=== PATIENT | female | born 1955 | race Caucasian/White ===

== ENCOUNTER 2018-02-07 10:28 | Emergency (ER) | payer OTHER, BC, SELFPAY ==
[2018-02-07 10:29] VITALS: BP 166/143; PULSE 128; RESP 20; TEMP 36.2; O2SAT 99; BMI 30.2
[2018-02-07 11:34] VITALS: BP 143/64; PULSE 82; RESP 18; O2SAT 99
[2018-02-07] MEDS: HYDROmorphone 1 MG/ML Syringe IM (12:04)
[2018-02-07 14:10] VITALS: BP 131/70; RESP 18
--- NOTE | 2018-02-07 14:12 | ED.VISSUMM ---
- ER Visit Summary Date of Service: 02/07/18 Chief Complaint: Back pain History of Present Illness: The patient is a 62 F with hypertension diverticulitis. Patient states she has had back pain since January 26. Primarily right lower back. It does radiate down to her right leg. She denies any trauma. Denies any fall or fever. Denies any abdominal pain. Worse with movement. She has been seen and worked up for this by a chiropractor. She has had a recent CT of the abdomen which showed enlarged lymph nodes. An MRI of her spine showed multiple levels of degenerative disc disease at L3, L4, L5 and S1. She has an appointment to see a transit specialist at the [facility] on Wednesday. She denies any bowel or bladder incontinence. She does have radiation to her right leg. She denies any prior back surgery. Physical Examination: Older female complaining of pain vital signs are stable afebrile. Does not look septic or toxic. H EENT exam unremarkable neck nontender lungs clear to auscultation bilaterally. Heart tachycardic no murmur. Abdomen soft nontender also no organomegaly or masses. Nondistended normal bowel sounds. Moving all 4 extremities. Neurovascular intact. No cauda equina. No saddle anesthesia. 5 5 motor strength with dorsi plantar flexion. Normal medial thigh sensation. She does have a straight leg raise between 15 and 30? on the right. Negative on the left. Back exam both the cervical and thoracic spine are nontender her lower lumbar and right paralumbar soft tissues are tender to palpation. There is no redness or warmth. No signs of trauma. Neurologically she is awake and alert. Moving all 4 extremities. She is able to ambulate down the hallway. Again there is no cauda equina or saddle anesthesia. Test Results: None Emergency Department Course and Treatment: Treated with IM Dilaudid. We reviewed the results of her recent MRI and CT. The CAT scan showed lymphadenopathy. This was of her abdomen and pelvis. The lumbar spine showed multiple levels of degenerative disc disease with some spinal stenosis. Treatment Plan: Patient is doing better on repeat exam at 1410. Her are comfortable being discharged home. She will be written for some additional hydrocodone. Appointment to see the transit specialist at [facility] on Wednesday. They know to return if any signs of cauda equina such as bowel or bladder incontinence, retention, increasing pain, fever or leg weakness. Disposition: Discharged Impression: Acute low back pain secondary to multiple level degenerative disc disease with radiculopathy. This note was generated with [employer] dictation software. It may contain incorrect words, spelling, and punctuation that were not noted in review of the chart prior to signing ED Disposition - Plan for ED Patient: Chief Complaint: Back Referrals: Ashok Hernandez [Primary Care Provider] -
--- NOTE | 2018-02-07 14:17 | ED.DCSUM_ITS ---
- ER Visit Summary Date of Service: 02/07/18 Chief Complaint: Back pain History of Present Illness: The patient is a 62 F with hypertension diverticulitis. Patient states she has had back pain since January 26. Primarily right lower back. It does radiate down to her right leg. She denies any trauma. Denies any fall or fever. Denies any abdominal pain. Worse with movement. She has been seen and worked up for this by a chiropractor. She has had a recent CT of the abdomen which showed enlarged lymph nodes. An MRI of her spine showed multiple levels of degenerative disc disease at L3, L4, L5 and S1. She has an appointment to see a training specialist at the [facility] on Wednesday. She denies any bowel or bladder incontinence. She does have radiation to her right leg. She denies any prior back surgery. Physical Examination: Older female complaining of pain vital signs are stable afebrile. Does not look septic or toxic. H EENT exam unremarkable neck nontender lungs clear to auscultation bilaterally. Heart tachycardic no murmur. Abdomen soft nontender also no organomegaly or masses. Nondistended normal bowel sounds. Moving all 4 extremities. Neurovascular intact. No cauda equina. No saddle anesthesia. 5 5 motor strength with dorsi plantar flexion. Normal medial thigh sensation. She does have a straight leg raise between 15 and 30? on the right. Negative on the left. Back exam both the cervical and thoracic spine are nontender her lower lumbar and right paralumbar soft tissues are tender to palpation. There is no redness or warmth. No signs of trauma. Neurologically she is awake and alert. Moving all 4 extremities. She is able to ambulate down the hallway. Again there is no cauda equina or saddle anesthesia. Test Results: None Emergency Department Course and Treatment: Treated with IM Dilaudid. We reviewed the results of her recent MRI and CT. The CAT scan showed lymphadenopathy. This was of her abdomen and pelvis. The lumbar spine showed multiple levels of degenerative disc disease with some spinal stenosis. Treatment Plan: Patient is doing better on repeat exam at 1410. Her are comfortable being discharged home. She will be written for some additional hydrocodone. Appointment to see the training specialist at [facility] on Wednesday. They know to return if any signs of cauda equina such as bowel or bladder incontinence, retention, increasing pain, fever or leg weakness. Disposition: Discharged Impression: Acute low back pain secondary to multiple level degenerative disc disease with radiculopathy. This note was generated with [employer] dictation software. It may contain incorrect words, spelling, and punctuation that were not noted in review of the chart prior to signing ED Disposition - Plan for ED Patient: Chief Complaint: Back Referrals: Ashok Hernandez [Primary Care Provider] -
--- NOTE | 2018-02-07 14:19 | DCINST.ED_ITS ---
ED Disposition - Plan for ED Patient: Disposition: Home or Assisted Living Chief Complaint: Back Instructions: ED Sciatica Prescriptions: Hydrocodone/Acetaminophen [Hydrocodone-Acetamin 7.5-300] 1 ea PO Q6H PRN PRN # 20 tab PRN Reason: Pain Additional Instructions: Follow-up with your rn document improvement specialist to [facility] on Wednesday. Pain medications as prescribed the hydrocodone. Also limited Motrin 400 mg in the morning and after dinner.
[2018-02-07] MEDS: HYDROmorphone 1 MG/ML Syringe SC (14:27)
[2018-02-07 14:48] VITALS: BP 126/73; PULSE 82; RESP 18
== END 2018-02-07 14:49 | disposition home or self-care (01) ==
PROVIDERS: Emergency Provider Emergency Medicine; Family Provider Family Medicine; PCP Family Medicine
DX: M51.17 Intervertebral disc disorders with radiculopathy, lumbosacral region (principal); I10 Essential (primary) hypertension
CPT/HCPCS: 96372; 99283

== ENCOUNTER 2020-12-31 10:52 | Outpatient (RCR) | payer OTHER, BC, SELFPAY ==
[2020-12-31] MEDS: COVID-19 VACC, MRNA(PFIZER)/PF 30 MCG/0.3 ML SYRINGE IM (17:46)
[2021-01-21] MEDS: COVID-19 VACC, MRNA(PFIZER)/PF 30 MCG/0.3 ML SYRINGE IM (17:05)
== END 2021-04-01 23:59 ==
LOC: IMMUN 10:52
PROVIDERS: PCP Family Medicine; Visit Provider Family Medicine
DX: Z23 Encounter for immunization (principal)
CPT/HCPCS: 0001A; 0002A; 91300

== ENCOUNTER 2022-01-14 20:06 | Emergency (ER) | payer BC, MEDICARE, SELFPAY ==
[2022-01-14 20:07] VITALS: BP 186/78; PULSE 106; RESP 18; TEMP 35.5; O2SAT 100; BMI 33.5
--- NOTE | 2022-01-14 20:39 | EDS_ITS ---
HPI HPI - GI History of Present Illness Chief Complaint: Abd Pain Informant: patient Abdominal Pain/Flank Pain Onset: Days (5) Context: Gradual Onset Timing: Continuous Quality: Aching Location: Epigastric, RUQ, LUQ and Right Flank Worsened by: Food Relieved by: Nothing Nausea/Vomiting/Emesis GI Symptom: Positive for Nausea; Negative for Vomiting Diarrhea/Melena/Hematochezia GI Symptom: Negative for Diarrhea, Melena and Hematochezia Associated Symptoms Associated Symptoms: Negative for Dysuria, Frequency and Hematuria Narrative Narrative: Patient presents with abdominal pain that has been getting worse over the past 5 days. Patient states it is gradually gotten worse. Patient describes her pain as aching. Patient states it is over the upper abdomen and into the right side of her back. Patient states it is worse approximately 30 minutes after eating. Patient states that she is able to eat applesauce or low- fat yogurt. Patient states anything else makes her pain worse. Patient admits to nausea. Patient denies any vomiting. Patient denies any diarrhea, melena, or hematochezia. Patient denies any urinary complaints. PFSH PFSH Medical History no medical history no medical history Home Medications aspirin 81 mg PO DAILY@0800 02/23/15 [History Last Taken Unknown] diltiazem HCl 300 mg PO DAILY 02/23/15 [History Last Taken Unknown] indapamide 5 mg PO DAILY 02/23/15 [History Last Taken Unknown] meloxicam 15 mg PO DAILY 02/23/15 [History Last Taken Unknown] potassium chloride [K-Dur] 20 meq PO DAILY 02/23/15 [History Last Taken Unknown] meclizine 25 mg PO BID PRN PRN 02/07/18 [History Last Taken Unknown] calcium 600 mg PO DAILY 01/14/22 [History Last Taken Unknown] cholecalciferol (vitamin D3) [Vitamin D3] 125 mcg PO DAILY 01/14/22 [History Last Taken Unknown] hydrocodone-acetaminophen 1 tab PO Q6H PRN PRN 3 Days #10 tablet 01/14/22 [Rx Last Taken Unknown] Allergy/AdvReac Type Severity Reaction Status Date / Time BETA BLOCKERS Allergy Chest Uncoded 01/14/22 20:11 tightness Surgical History (Updated 01/14/22 @ 20:[address] Cuong Ambriz, DO) H/O partial resection of colon History of back surgery History of right shoulder replacement Social History Smoking Status: Never smoker ROS ROS ED Constitutional Constitutional ED: Denies chills or fever(s) Eyes Eyes: Denies blurry vision or change in vision ENT ENT ED: Denies rhinorrhea or sore throat Cardiovascular Cardiovascular: Denies chest pain or palpitations Respiratory/Chest Respiratory/Chest: Denies cough or dyspnea Gastrointestinal Gastrointestinal: Reports abdominal pain and nausea; Denies vomiting Genitourinary Genitourinary ED: Denies dysuria or hematuria Musculoskeletal Musculoskeletal: Reports back pain; Denies neck pain Integumentary Denies abscess or rash Neurologic Neurologic: Denies headache(s) or weakness Allergic/Immunologic Allergic/Immunologic ED: Denies mouth swelling or urticaria EXAM Physical Exam Const Vital Signs: 01/14/22 20:07 01/14/22 22:39 Temperature 96 F L Temperature Source Temporal Pulse Rate 106 H 79 Respiratory Rate 18 18 Blood Pressure 186/78 H 185/88 H Blood Pressure Mean 114 120 Pulse Ox 100 Oxygen Delivery Method Room Air Positive well nourished, well developed and obese General Appearance ED: well developed and NAD Nutritional Appearance: obese HEENT Reports moist mucous membranes Neck supple and no JVD Resp normal respiratory effort and clear to auscultation bilaterally Cardio regular rate, regular rhythm and no murmurs GI normal to inspection, nondistended, normoactive bowel sounds and non-distended Auscultation: normoactive bowel sounds Palpation: soft and tender epigastric, LUQ, RUQ and Obregon's sign; Negative for guarding or rebound tenderness present Extremity normal to inspection General Extremety ED: Negative for edema or tenderness General Extremity: Negative for edema Neuro oriented x3, CN's II-XII intact bilaterally, moves all extremities and no sensory deficits noted Sensorium / Orientation: alert Motor Exam: strength 5/5 throughout Psych mental status grossly normal Skin no rashes or lesions noted MDM MDM MDM Narrative Medical decision making narrative: Patient was given IV fluids, morphine, and Zofran. CBC was within normal limits. Comprehensive metabolic profile was essentially within normal limits. Lipase was normal. Urinalysis does not show any evidence of urinary tract infection. Ultrasound of the gallbladder was obtained. There is a 1.3 cm stone in the gallbladder fundus with normal gallbladder wall thickness and positive Obregon sign. There is no pericholecystic fluid. There is no ductal dilatation noted. This was interpreted by the radiologist and reviewed by myself. Patient was feeling better on reevaluation. Patient was advised of her findings. Patient was given a prescription for a short course of Lilly. Patient states she does not feel she needs any antiemetics at home. Patient was given a referral for Dr. Butcher for general surgery. Patient was instructed to follow-up with him in 5-7 days. Patient was instructed to avoid fried foods, fatty foods, and greasy foods. Patient was instructed to return if worse in any way. Patient understood and was agreeable with the plan. All questions were answered. Lab Data Attestation: I reviewed the patient's lab results. Labs: Laboratory Results - last 24 hr 01/14/22 01/14/22 01/14/22 20:22 20:22 Unknown WBC 8.9 RBC 5.05 Hgb 13.6 Hct 38.0 MCV 75.2 L MCH 26.9 L MCHC 35.8 RDW Std Deviation 34.3 L RDW Coeff of Magno 12.7 Plt Count 484 H MPV 9.4 Immature Gran % (Auto) 0.700 Neut % (Auto) 64.0 Lymph % (Auto) 24.3 Bullitt % (Auto) 7.2 Eos % (Auto) 3.1 Baso % (Auto) 0.7 Absolute Neuts (auto) 5.7 Absolute Lymphs (auto) 2.15 Nucleated RBC % 0 Sodium 131 L Potassium 3.8 Chloride 95 L Carbon Dioxide 27.0 Anion Gap 9 BUN 24 H Creatinine 1.16 H Estim Creat Clear Calc 37.73 Est GFR (MDRD) Af Amer 60 Est GFR (MDRD) Non-Af 50 L BUN/Creatinine Ratio 20.7 H Glucose 111 H Calcium 9.7 Total Bilirubin 0.30 AST 12 L ALT 15 Alkaline Phosphatase 89 Total Protein 7.6 Albumin 3.6 Globulin 4.0 Albumin/Globulin Ratio 0.9 Lipase 156 Urine Color Yellow Urine Clarity Clear Urine pH 6.0 Ur Specific [place] 1.015 Urine Protein Negative Urine Glucose (UA) Normal Urine Ketones Negative Urine Occult Blood Negative Urine Nitrite Negative Urine Bilirubin Negative Urine Urobilinogen Normal Ur Leukocyte Esterase 100 H Urine RBC 0 SEEN Urine WBC 0-5 SEEN Ur Squamous Epith Cells 0-5 SEEN Urine Bacteria 0 SEEN Urine Mucus 0 SEEN Radiography Diagnostic Testing: Clinical Impression(s) from Imaging Studies Gallbladder Ultrasound 01/14/22 21:12 IMPRESSION: Mild increased echogenicity of the liver suggesting mild hepatic steatosis. 1.3 cm stone in the gallbladder fundus with upper limit of normal gallbladder wall thickness and positive OBREGON sign. No pericholecystic fluid. No intra or extrahepatic biliary ductal dilation. Electronically Signed: Jeremy Sands DO at 22:25 EDT , Discharge Plan Triage Chief Complaint: Abd Pain ED Provider: Cuong Ambriz Dx/Rx/DC Orders Clinical Impression: Cholelithiasis, Biliary colic symptom Instructions: ED Gallstones with Biliary Colic Prescriptions: New hydrocodone-acetaminophen [hydrocodone-acetaminophen] 1 TABLET tablet 1 tab PO Q6H PRN PRN (Reason: Pain) 3 Days Qty: 10 RF: 0 No Action indapamide 2.5 MG tablet 5 mg PO DAILY RF: 0 meloxicam 15 MG tablet 15 mg PO DAILY RF: 0 potassium chloride [Klor-Con M20] 20 MEQ tablet 20 meq PO DAILY RF: 0 diltiazem HCl 300 MG capsule 300 mg PO DAILY RF: 0 aspirin 81 MG tablet,chewable 81 mg PO DAILY@0800 RF: 0 meclizine 25 MG tablet 25 mg PO BID PRN PRN (Reason: Dizziness) RF: 0 calcium 600 mg Capsule 600 mg PO DAILY RF: 0 cholecalciferol (vitamin D3) [Vitamin D3] 125 mcg (5,000 unit) Tablet 125 mcg PO DAILY RF: 0 Primary Care Provider: Ashok Hernandez Referrals: Jeremy Butcher MD [STAFF PHYSICIAN] - 3-5 Days Ashok Hernandez MD [Primary Care Provider] - 3-5 Days Disposition Disposition: Home, Self Care
--- NOTE | 2022-01-14 21:12 | US_ITS ---
STUDY: ABDOMINAL ULTRASOUND - RIGHT UPPER QUADRANT REASON FOR VISIT: Female, 66 years old PAIN-RUQ TECHNIQUE: Ultrasound evaluation of the right upper quadrant was performed with real-time and static shaver-scale imaging. TECHNICAL QUALITY: Adequate. COMPARISON: None. FINDINGS: Liver: The liver measures 17.2 cm. There is slightly increased hepatic echogenicity. The bile ducts are within normal limits. Normal color flow seen in the hepatic venous confluence. The direction of portal flow is hepatopetal. There is no demonstrated mass lesion. Gallbladder: Single large, 1.3 cm stone in the fundus of the gallbladder. The gallbladder wall measures 3.2 mm. There is a positive sonographic Obregon''s sign. There is no pericholecystic fluid. Common Bile Duct (C.B.D.): The common bile duct measures 5 mm. Pancreas: Visualized pancreatic head and body are normal in appearance. No ductal dilation. There is normal echogenicity of the pancreas. There is no demonstrated pancreatic mass or cyst. Right Kidney: 10.3 cm in length. No cortical thinning. No solid or cystic mass lesion. No hydronephrosis or perinephric fluid. Color-flow seen in the right renal hilum. US/Gallbladder IMPRESSION: Mild increased echogenicity of the liver suggesting mild hepatic steatosis. 1.3 cm stone in the gallbladder fundus with upper limit of normal gallbladder wall thickness and positive OBREGON sign. No pericholecystic fluid. No intra or extrahepatic biliary ductal dilation. Electronically Signed: Jeremy Sands DO at 22:25 EDT ,
[2022-01-14] MEDS: Morphine 4 MG/ML Syringe IV (21:23)
[2022-01-14] MEDS: Ondansetron 4 MG/2 ML Vial IV (21:23)
[2022-01-14] MEDS: 0.9% Normal Saline 1,000 ML 1000 ML IV (21:23)
[2022-01-14 21:32] LABS: Bacteria 0 SEEN /hpf (None Seen); Mucous, Urine 0 SEEN /hpf (<or=2+); Red Blood Cells-Urine 0 SEEN /hpf (0-5)
[2022-01-14 21:33] LABS: Absolute Lymphocyte Count 2.15 X10^3/uL (0.83-4.51); Absolute Neutrophil Count 5.7 X10^3/uL (2.0-7.7); Basophil# 0.06 X10^3/uL; Basophil% 0.7 % (0-1); Eosinophil# 0.27 X10^3/uL; Eosinophils% 3.1 % (0-5); Hemoglobin 13.6 g/dL (12.0-15.0); Lymphocyte # 2.15 X10^3/ul (0.83-4.51); Lymphocyte % 24.3 % (19-41); Mean Corp Hgb Conc 35.8 g/dL (32-36); Mean Corpuscular Hgb 26.9 pg (27.0-32.0); Mean Corpuscular Volume 75.2 fL (81-99); Mean Platelet Vol. 9.4 fl (6.2-12.0); Monocyte# 0.64 X10^3/uL; Monocyte% 7.2 % (0-10); NRBC Flagged by Analyzer 0 % (0-5); Neutrophil # 5.67 X10^3/uL (2.7-7.7); Platelet Count 484 K/mm3 (150-450); RBC Distribution Width CV 12.7 % (11.6-14.6); RBC Distribution Width SD 34.3 fl (35.1-43.9); Red Blood Count 5.05 M/mm3 (4.2-5.4); White Blood Count 8.9 K/mm3 (4.4-11.0)
[2022-01-14 21:54] LABS: ALB/GLOB Ratio 0.9 RATIO (0.9-2.4); AST(SGOT) 12 U/L (15-37); Alanine Aminotransfer ALT/SGPT 15 U/L (13-56); Albumin, Serum 3.6 g/dL (3.2-5.0); Alkaline Phosphatase 89 U/L (45-117); Anion Gap 9 (5-15); BUN 24 mg/dL (7-18); BUN/Creat Ratio 20.7 RATIO (10-20); Calcium,Total 9.7 mg/dL (8.5-10.1); Chloride 95 mmol/L (98-107); Creatinine, Serum 1.16 mg/dL (0.55-1.02); EST Glomerular Filtration Rate 50 mL/min (>60); Est Glom Filt Rate - Afr Amer 60 mL/min (>60); Estimated Creatinine Clearance 37.73 ml/min; Glucose 111 mg/dL (74-106); Lipase 156 U/L (73-393); Potassium 3.8 mmol/L (3.5-5.1); Protein, Total 7.6 g/dL (6.4-8.2); Sodium Level 131 mmol/L (136-145)
[2022-01-14 21:55] LABS: Color, Urine Yellow (Yellow); Glucose, Dipstick Normal (Normal); Ketone-Dipstick Negative (Negative); Leukocyte Esterase-Dipstick 100 /ul (Negative); Nitrite-Dipstick Negative (Negative); Occult Blood-Urine Negative /ul (Negative); Protein-Dipstick Negative (Negative); Specific Gravity, Urine 1.015 (1.002-1.030); Urine Bilirubin Dipstick Negative (Negative); Urine Clarity Clear (Clear); Urine Urobilinogen Normal (Normal)
[2022-01-14 22:08] LABS: Squamous Epithelial Cells - UA 0-5 SEEN /hpf (5-10); White Blood Cells 0-5 SEEN /hpf (0-5)
[2022-01-14 22:39] VITALS: BP 185/88; PULSE 79; RESP 18
[2022-01-14 23:11] VITALS: BP 165/78; PULSE 80; RESP 16
== END 2022-01-14 23:12 | disposition home or self-care (01) ==
PROVIDERS: Emergency Provider Emergency Medicine; PCP Family Medicine; Visit Provider Emergency Medicine
DX: K80.20 Calculus of gallbladder without cholecystitis without obstruction (principal); E66.9 Obesity, unspecified; Z68.33 Body mass index [BMI] 33.0-33.9, adult
CPT/HCPCS: 76705; 80053; 81001; 83690; 85025; 96361; 96374; 96375; 99283; J7030; A4216; J2405

== ENCOUNTER 2022-01-23 08:58 | Day surgery (SDC) | payer BC, MEDICARE, SELFPAY ==
--- NOTE | 2022-01-21 08:18 | EKG12_ITS ---
Test Reason : PRE OP Blood Pressure : / mmHG Vent. Rate : 071 BPM Atrial Rate : 071 BPM P-R Int : 178 ms QRS Dur : 084 ms QT Int : 366 ms P-R-T Axes : 051 054 110 degrees QTc Int : 397 ms Normal sinus rhythm Septal infarct , age undetermined T wave abnormality, consider lateral ischemia Abnormal ECG Confirmed by LUCHO NELSON, JULIUS ([id number]), graphics editor MECCA VELASQUEZ ([id number]) on 01/21/2022 1:37:02 PM Referred By: JACKY Confirmed By:JULIUS YEPEZ MD
[2022-01-21 09:52] LABS: ALB/GLOB Ratio 0.9 RATIO (0.9-2.4); AST(SGOT) 11 U/L (15-37); Alanine Aminotransfer ALT/SGPT 15 U/L (13-56); Albumin, Serum 3.6 g/dL (3.2-5.0); Alkaline Phosphatase 86 U/L (45-117); Anion Gap 4 (5-15); BUN 19 mg/dL (7-18); BUN/Creat Ratio 19.2 RATIO (10-20); Calcium,Total 9.4 mg/dL (8.5-10.1); Chloride 96 mmol/L (98-107); Creatinine, Serum 0.99 mg/dL (0.55-1.02); EST Glomerular Filtration Rate 60 mL/min (>60); Est Glom Filt Rate - Afr Amer 72 mL/min (>60); Globulin 3.9 g/dL (2.2-4.2); Glucose 112 mg/dL (74-106); Potassium 3.7 mmol/L (3.5-5.1); Protein, Total 7.5 g/dL (6.4-8.2); Sodium Level 133 mmol/L (136-145)
[2022-01-21 11:23] LABS: International Normalized Ratio 1.1; Prothrombin Time (Protime)PT. 13.2 SECONDS (11.7-14.9)
[2022-01-21 11:24] LABS: Partial Thromboplast Time 32.4 Seconds (24.1-36.2)
[2022-01-23] MEDS: Lactated Ringers 1,000 ML 15 ML IV (09:05)
[2022-01-23 09:27] VITALS: BP 144/68; PULSE 71; RESP 16; TEMP 36.2; O2SAT 99; BMI 33.3
--- NOTE | 2022-01-23 10:30 | GALL_PTH ---
PATIENT: BHUPENDRA DOSHI [place] [facility] [id number] AGE/SX: 66/F ROOM: RE01/23/[address]: Dr. Jeremy Butcher MD : 1955 BED: DIS: 01/23/2022 SPEC #: [id number] RECD: 01/23/22 15:46 STATUS: DAISY WEBSTER #: [id number] BOB: 01/23/22 10:[address]: Jeremy Butcher DEPT: SURGICAL PATHOLOGY RECD BY: Mariela Randhawa ENTERED: 01/26/22 12:22 SP TYPE: [facility] DR: Dr. Ashok Hernandez MD Tissues: Gallbladder, NOS Procedures: Surgery Specimen Level III HEADER OPERATION: Laparoscopic cholecystectomy with IOC PRE-OP DIAGNOSIS: Symptomatic cholelithiasis and incisional hernia TISSUE SUBMITTED: Gallbladder MICROSCOPIC DIAGNOSIS Gallbladder, cholecystectomy: Cholesterolosis, chronic cholecystitis and cholelithiasis. AM:isabel 01/27/2022 MICROSCOPIC DESCRIPTION Slides are reviewed. GROSS DESCRIPTION Received is one container labeled with the patient's name and designated gallbladder. The specimen consists of a gallbladder measuring 11.8 x 3.5 x 3.5 cm. The external surface is smooth and glistening. Focally, it is granular, hemorrhagic and contains cautery artifact. The lumen of the gallbladder contains yellow-green mucoid bile and a yellow crystalline calculus measuring 1 cm in diameter. The mucosa is bile-stained and without any mass lesions. The gallbladder wall averages 0.1 cm in thickness and is free of mass lesions. [employer]ing [employer] sections of the gallbladder and the cystic duct at margin of resection are submitted in one cassette. / AM:isabel 01/26/2022 TC:3 CPT: 34564
--- NOTE | 2022-01-23 10:30 | RAD_ITS ---
STUDY: INTRAOPERATIVE CHOLANGIOGRAM. REASON FOR EXAM: Female, 66 years old. Laparoscopic cholecystectomy. FLUOROSCOPY TIME (if supplied): ( 42 seconds ) minutes/seconds. A cine loop of 108 images was obtained. TECHNIQUE: Intraoperative cholangiogram was performed by the surgeon. Imaging was submitted. COMPARISON: None. FINDINGS: The visualized intrahepatic biliary ducts are unremarkable. The common bile duct is not dilated. No intraluminal filling defect is seen. Unremarkable intraoperative cholangiogram. RAD/Cholangiogram/ O R,Initial IMPRESSION: Unremarkable intraoperative cholangiogram. Electronically Signed: Alex Yu MD at 14:17 EDT ,
--- NOTE | 2022-01-23 10:46 | HP.PCM_ITS ---
History and Physical Date of Admission: 01/23/22 Date of Service: 01/19/22 MR#:[id number]: BHUPENDRA DOSHI #:[id number]:1955 Provider:Jacquelin Goldman/Sex: 66/F [facility] Int[facility] Vital Signs 01/19/22 08:14 Height 5 ft 2 in Weight: 183 lb 2 oz BMI 33.5 BP 177/85 H Blood Pressure Location Lt brachial Position Sitting Respiration 17 Pulse 87 Pulse Source Monitor Temp 97.7 F L Temp Source Temporal Pulse Oximetry (%) 99 Oxygen Delivery Method room air Intake Visit Reasons: ER F/U 01/14 GALLBLADDER Chief Complaint: ER F/U 01/14 Gallbladder Focuser Required: No Is patient in pain?: No Allergies BETA BLOCKERS Allergy (Uncoded 01/14/22 20:11) Chest tightness Medications aspirin 81 mg PO DAILY@0800 02/23/15 [History Confirmed 01/19/22] diltiazem HCl 300 mg PO DAILY 02/23/15 [History Confirmed 01/19/22] indapamide 5 mg PO DAILY 02/23/15 [History Confirmed 01/19/22] meloxicam 15 mg PO DAILY 02/23/15 [History Confirmed 01/19/22] potassium chloride [K-Dur] 20 meq PO DAILY 02/23/15 [History Confirmed 01/19/22] meclizine 25 mg PO BID PRN PRN 02/07/18 [History Confirmed 01/19/22] calcium 600 mg PO DAILY 01/14/22 [History Confirmed 01/19/22] cholecalciferol (vitamin D3) [Vitamin D3] 125 mcg PO DAILY 01/14/22 [History Confirmed 01/19/22] hydrocodone-acetaminophen 1 tab PO Q6H PRN PRN 3 Days #10 tablet 01/14/22 [Rx Confirmed 01/19/22] multivitamin 1 tab PO DAILY 01/19/22 [History Confirmed 01/19/22] PFSH Medical History (Updated 01/19/22 @ 15:[address] Jeremy Butcher MD) Umbilical hernia Surgical History (Updated 01/19/22 @ 08:13 by Elina Wednesday) H/O partial resection of colon History of back surgery History of carpal tunnel release of both wrists History of hysterectomy History of repair of left rotator cuff History of right shoulder replacement Family History (Updated 01/19/22 @ 08:14 by Elina Wednesday) Mother Cancer Melanoma Father Heart disease Social History (Updated 01/19/22 @ 08:14 by Elina Wednesday) Smoking Status: Never smoker alcohol intake: never substance use type: does not use HPI HPI HPI: BHUPENDRA DOSHI, is a 66 F who presents to the office today for who presents with complaints of biliary colic/symptomatic cholelithiasis. They are referred for surgical consultation from the ER after a visit on 01/14/2022. Pain is described as sharp and patient states that it reached an intensity of a 9 out of 10 this past week. Her last experience of this pain was yesterday. She describes this pain as occurring mostly with a postprandial onset. Initial occurrence was following a meal of pizza and the pain last 2 to 3 days before spontaneously remitting. Patient states that she has now been on scrambled eggs and applesauce as she attempts to limit fat intake. However, even yesterday eating a salad with fat-free dressing resulted in some pain overnight. She estimates this pain has been present for the last 1 month. Is associated with some mild heartburn and nausea. She denies any associated fevers or chills. As a general rule she does not experience reflux. She has experienced no weight loss with this issue. Previous work-up has included: Gallbladder ultra on 01/14/2022 this found evidence of a 1.3 cm stone in the gallbladder fundus and gallbladder wall that is at the upper limits of normal in terms of thickness. There was also a positive Obregon sign. Significantly no pericholecystic fluid was seen and there is no intra or extrahepatic biliary ductal dilation. Patient has remote history of complicated diverticulitis. She notes that she required 3 surgeries for this issue starting in July 2012 when she had a Centeno's procedure. 1 month later in August 2012 she was due for reversal, but intraoperatively was found to have ongoing infection and her colostomy was reversed with a diverting ileostomy. 3 months after that in November 2012, she underwent ileostomy reversal and has done well since. She does note that her primary care provider identified a incisional hernia at the level of the umbilicus in 2013. However, she states that she has been asymptomatic with this finding. ROS General General: No weight change, appetite, fatigue, colon cancer, breast cancer or weakness HEENT HEENT: No difficulty swallowing, eye injury, eye surgery, swollen glands or hoarseness Endo Endocrine: No thyroid disease, diabetes mellitus, thyroid cancer, Hair loss, heat intolerance or cold intolerance Skin Skin: No rash or changing moles Musc Musculoskeletal: Yes arthritis; No back problems, rheumatoid arthritis, gout or joint pain Cardio Cardiovascular: Yes high blood pressure; No murmur, pacemaker, heart disease, atrial fibrillation, heart attack, heart stent, palpitations, shortness of breat with exertion or chest pain Psych Psychiatric: No depression, anxiety or hearing voices Resp Respiratory: No shortness of breath, No sleep apnea, No cough, No COPD, No asthma, No emphysema and No wheezing Gastro Gastrointestinal: Yes abdominal pain, Yes nausea or vomiting, No diarrhea, No constipation, No blood in stool, No acid reflux, No hemorrhoids, No ulcers, Yes gallbladder problem and No black,tarry stools Drake Hematologic: No blood thinners, No blood disorders, No bleeding, No anemia and No blood clots Additional Details: Baby ASA daily Neuro Neurologic: No system reviewed and no additional complaints, except as documented, No as per HPI, No abnormal gait, No abnormal hearing, No abnormal movements, No abnormal speech, No behavioral changes, No burning sensations, No confusion, No convulsions, No disequilibrium, No dizziness, No localized weakness, No frequent falls, No headache(s), No lack of coordination, No loss of vision, No memory loss, No numbness, No other visual disturbances, No radicular pain, No restless legs, No sensory deficit, No syncope, No tingling, No tremor(s), No weakness and No other Exam Const General: cooperative, healthy appearing, comfortable and no acute distress Orientation: alert, awake and oriented x3 Resp Effort & Inspection: normal respiratory effort Auscultation: no rales, no rhonchi and no wheezes Cardio Rate: regular rate Rhythm: regular rhythm Heart Sounds: S1 normal and S2 normal GI Inspection: obesity, scar (Well-healed laparotomy extending from umbilicus to pubic tubercle) and no visible herniation Palpation: soft, hernia (Directly overlying umbilicus, reducible/soft, tender- incisional?) and tender in the RUQ; Obregon's sign negative Assessment and Plan Assessment and Plan (1) Symptomatic cholelithiasis: Status: Acute Comment: Is a 66-year-old female who describes a 1 month history of right upper quadrant pain that is associated with nausea. This pain is postprandial in onset and has some radiation to the back posteriorly. Patient was recently evaluated in the ER for this complaint and found to have a 1.3 cm gallstone in the gallbladder fundus with gallbladder wall thickness rated at the upper limits of normal. Patient's exam is certainly consistent with gallbladder etiology and suspect there may be a component of chronic cholecystitis. Recommend proceeding with laparoscopic cholecystectomy and possible intraoperative cholangiogram Plan - Dr. Jeremy Butcher MD: ?Laparoscopic cholecystectomy plus/minus intraoperative cholangiogram to be done as outpatient procedure under general endotracheal anesthetic in the next week (2) Umbilical hernia without obstruction and without gangrene: Status: Acute Comment: Is a 66-year-old female with a history of diverticular disease status post Centeno's, Farhan's closure with ileostomy creation, and reversal of ileostomy now with a small hernia at the level of the umbilicus. Given the hernias location at the terminal end of her prior incision, but also at her umbilicus this is difficult to differentiate. Also given that my port placement is usually in a supraumbilical position, I reason that it would be feasible to close the patient's hernia at the time of her operation and make a quick check of hernia contents using laparoscope. We will plan to proceed to make this repair primarily. Plan - Dr. Jeremy Butcher MD: Repair of patient's hernia simultaneous with laparoscopic cholecystectomy as above I have re-examined the patient. There are no clinical changes since date of exam. Plan to proceed with laparoscopic cholecystectomy plus minus intraoperative cholangiogram and possible incisional hernia repair.
[2022-01-23] MEDS: Cefazolin 2 GM in 0.9% Normal Saline 100 ML IV (11:00)
--- NOTE | 2022-01-23 13:18 | PCM.OPRPT ---
Report of Operation Date of Procedure: 01/23/22 Pre-Operative Diagnosis: 1. Symptomatic cholelithiasis 2. Asymptomatic incisional hernia Post-Operative Diagnosis: 1. Cholecystitis 2. Large incisional hernia containing omentum Surgery/Procedure Performed:: Laparoscopic cholecystectomy with intraoperative cholangiogram Description of Surgical Findings:: ?Multiple large fascial defects containing omentum ?Gallbladder inflammation with adhesions to the underlying the duodenum ?Normal cholangiogram appearance with antegrade flow into the duodenum and retrograde opacification of the hepatic ducts Surgeon: Jeremy Butcher double needle stitcher: Radha South Type of Anesthesia: General/Supplemental Anesthesiologist: Cuong Saunders Specimen's removed: Gallbladder Drains: Nonapplicable Estimated Blood Loss (mL): 50 Description of Procedure: After proper identification in the preoperative holding area the patient was brought to the operating room where she was positioned supine on the operating room table. Preoperatively SCDs were placed and antibiotics were administered. General anesthesia was then induced. Patient's abdomen was prepped and draped in usual sterile fashion. A formal timeout was conducted to confirm both patient and the procedure. Procedure was begun with a subxiphoid incision which was extended deeply down to the level of the fascia. The fascia was elevated and incised, as well as the peritoneum. A finger sweep was performed to ensure there were no underlying adhesions and a 12 mm trocar was inserted. Pneumoperitoneum was established at 15 mmHg. 2 additional 5 mm trochars were placed in the?that right upper quadrant. Inspection of the peritoneum revealed no inadvertent injury to the viscera below. The gallbladder was visualized with mild inflammation. We then inspected more inferiorly to the level of the umbilicus. There I observed some rectus diastases as well as multiple large fascial defects containing omentum. Given their large size, these hernia defects will require placement of mesh- which I informed the patient was not advised at the same time as a potentially contaminated case. Therefore these defects were photographed and I stripped down just enough omentum to provide clear access for our last port placement in a supraumbilical position. An incision was made and under laparoscopic visualization a 12 mm trocar was placed. The gallbladder fundus was then grasped and elevated cephalad. Then, using careful dissection the peritoneum was opened and the structures of the hepatocystic triangle were delineated. Once the critical view of safety was obtained, A cholangiocatheter was fed into the proximal segment of the cystic duct using the [place] clamp. A cholangiogram was then obtained showing a standard length cystic duct flowing into a common bile duct with unobstructed antegrade flow of contrast into the duodenum. There was also retrograde flow through the common hepatic duct into the right and left hepatic ducts. With this result, the cholangiocatheter was withdrawn and the cystic duct was triply clipped and sharply divided. The same process was used for the cystic artery. The gallbladder was then removed from the gallbladder fossa with the use of electrocautery. The gallbladder was placed in an Endo Catch bag and removed from the peritoneum. Morison's pouch was irrigated and the effluent was suctioned free of the peritoneum. Hemostasis was again confirmed along the gallbladder fossa. Given the patient's thick abdominal wall and history of hernias from prior operative interventions, I elected to close her 12 mm port sites with a Wenceslao-Claudia suture passer and #1 PDS suture under direct laparoscopic visualization. Both sites were done using a [id number] technique. Additional local anesthetic was injected at the port sites for postoperative pain control. The skin of each port site was then closed in subcuticular fashion using 4-0 Monocryl. Steri-Strips and bandages were applied as dressings. Patient tolerated the procedure well without any apparent complications. On emergence from their anesthetic the patient was taken to PACU for ongoing recovery. Procedures Digestive [id number]: [id number] Laparo cholecystectomy/graph
[2022-01-23] MEDS: Bupivacaine Mpf 0.5% 30 ML VIAL (13:20)
[2022-01-23 13:29] VITALS: BP 109/54; BP 144/68; PULSE 57; RESP 16; TEMP 36.9; O2SAT 98
[2022-01-23 13:34] VITALS: BP 109/56; BP 144/68; PULSE 56; RESP 16; O2SAT 99
--- NOTE | 2022-01-23 13:39 | EX.PCM.DISCH ---
Discharge Instructions Diet Discharge Diet: No restrictions Activity Discharge Activity: May Not Drive (No driving while using narcotic pain medication) and May Shower (Postoperative day 1) May shower in (days): 1 Ice area for (Minutes): 20 Lifting Restrictions: No lifting greater than 15 pounds for 2 weeks after surgery Dressing / Incision Call your doctor if your incision/area has: Continuous Slow Oozing, Increased Pain/ Swelling, Increased Redness, Foul Smelling Discharge and Swelling at the incision site Call your doctor if you observe: Fever of 101 or Higher Remove Dressing in: 1 day (Please leave Steri-Strips intact until they fall off spontaneously or are taken off at your follow-up visit) Cleanse incision/area with: Soap & Water Follow Up Care Please Follow Up With: Jeremy Butcher MD When: 7-10days postop Test Results: Test results from this visit will be discussed in further detail at your follow-up appointment, if applicable. Discharge Plan Admission Primary Reason for Your Visit: Gallbladder surgery Attending Provider: Jeremy Butcher Primary Care Provider: Ashok Hernandez Instructions Patient Instructions: After Gallbladder Surgery, Cholecystectomy Laparoscopic Dc Discharge Orders/Prescriptions Prescriptions: New oxycodone 5 mg tablet 5 mg PO Q6H PRN (Reason: pain) 3 Days Qty: 11 RF: 0 Continued multivitamin Tablet 1 tab PO DAILY RF: 0 indapamide 2.5 MG tablet 5 mg PO DAILY RF: 0 meloxicam 15 MG tablet 15 mg PO DAILY RF: 0 potassium chloride [Klor-Con M20] 20 MEQ tablet 20 meq PO DAILY RF: 0 diltiazem HCl 300 MG capsule 300 mg PO DAILY RF: 0 aspirin 81 MG tablet,chewable 81 mg PO DAILY@0800 RF: 0 calcium 600 mg Capsule 600 mg PO DAILY RF: 0 cholecalciferol (vitamin D3) [Vitamin D3] 125 mcg (5,000 unit) Tablet 125 mcg PO DAILY RF: 0 hydrocodone-acetaminophen 1 TABLET tablet 1 tab PO Q6H PRN PRN (Reason: Pain) 3 Days Qty: 10 RF: 0 Probiotic 3 billion cell Capsule 3,000 mmu cells PO DAILY RF: 0 Referrals / Follow Up: Ashok Hernandez MD [Primary Care Provider] - Disposition Disposition (needs filled in before D/C Order can be placed): Home, Self Care
[2022-01-23 13:46] VITALS: BP 123/60; BP 144/68; PULSE 60; RESP 16; O2SAT 100
[2022-01-23 14:00] VITALS: BP 128/55; BP 144/68; PULSE 61; RESP 16; TEMP 36.4; O2SAT 93
[2022-01-23 15:00] VITALS: BP 131/51; BP 144/68; PULSE 61; RESP 16; TEMP 37; O2SAT 96
[2022-01-23] MEDS: Ondansetron ODT 4 MG Tablet 8 MG PO (15:23)
== END 2022-01-23 23:59 | disposition home or self-care (01) ==
LOC: SDC 09:01 → AC 09:01
PROVIDERS: Anesthesiology; PCP Family Medicine; Referring Provider Surgery; Visit Provider Surgery
PROC: (CPT 47610; principal; 2022-01-23 10:10)
DX: K80.10 Calculus of gallbladder with chronic cholecystitis without obstruction (principal); E11.9 Type 2 diabetes mellitus without complications; Z79.82 Long term (current) use of aspirin; K42.9 Umbilical hernia without obstruction or gangrene; I10 Essential (primary) hypertension; Z79.899 Other long term (current) drug therapy; K76.0 Fatty (change of) liver, not elsewhere classified; R12 Heartburn; Z87.19 Personal history of other diseases of the digestive system; Z90.49 Acquired absence of other specified parts of digestive tract; R06.02 Shortness of breath; R42 Dizziness and giddiness
CPT/HCPCS: 47563; 00790; 36415; 74300; 76000; 80053; 85610; 85730; 87081; 88304; 93005; J7120; J2405

== ENCOUNTER 2022-01-26 01:22 | Emergency (ER) | payer BC, MEDICARE, SELFPAY ==
[2022-01-26 01:22] VITALS: BP 190/68; PULSE 65; RESP 18; TEMP 36.6; O2SAT 99; BMI 34.9
--- NOTE | 2022-01-26 01:43 | EKG12_ITS ---
Test Reason : N/ Blood Pressure : / mmHG Vent. Rate : 063 BPM Atrial Rate : 063 BPM P-R Int : 162 ms QRS Dur : 078 ms QT Int : 382 ms P-R-T Axes : 044 061 092 degrees QTc Int : 390 ms Normal sinus rhythm non specific t wave abnormality Confirmed by CHESTER NELSON, PRASANNA ([id number]), news assignment editor MONICO MORRIS ([id number]) on 01/28/2022 11:30:58 AM Referred By: DANNY Confirmed By:PRASANNA BRIGGS MD
--- NOTE | 2022-01-26 01:43 | RAD_ITS ---
EXAM: XR ABDOMEN, 2 VIEWS AND XR CHEST, 1 VIEW CLINICAL INDICATION: abd pain TECHNIQUE: Frontal view of the chest, frontal view of the abdomen/pelvis and upright or decubitus view of the abdomen. This report was created using Docstoc report generation technology. COMPARISON: 02/24/2015. FINDINGS: CHEST: LUNGS AND PLEURAL SPACES: Unremarkable. No consolidation or edema. No pneumothorax. No effusion. HEART: Unremarkable. Cardiac silhouette not enlarged. MEDIASTINUM: Central airways and mediastinal contour are unremarkable. ABDOMEN: INTRAPERITONEAL SPACE: No free air. GASTROINTESTINAL TRACT: Unremarkable. Non-obstructive. No bowel or stomach distention. ORGANS: Unremarkable as visualized. No organomegaly. No abnormal calcifications. TUBES, LINES AND DEVICES: None. BONES/JOINTS: Status post reverse shoulder arthroplasty. SOFT TISSUES: No acute findings. RAD/Acute Abdomen Inc Chest IMPRESSION: No acute disease or change. Electronically Signed: Jeremy Gilman MD at 2:31 EDT ,
[2022-01-26] MEDS: Ondansetron 4 MG/2 ML Vial IV (01:56)
[2022-01-26] MEDS: 0.9% Normal Saline 1,000 ML 999 ML IV (01:56)
[2022-01-26] MEDS: Morphine 4 MG/ML Syringe IV (01:56)
[2022-01-26 02:04] LABS: Absolute Lymphocyte Count 1.62 X10^3/uL (0.83-4.51); Absolute Neutrophil Count 7.8 X10^3/uL (2.0-7.7); Basophil# 0.01 X10^3/uL; Basophil% 0.1 % (0-1); Eosinophil# 0.08 X10^3/uL; Eosinophils% 0.8 % (0-5); Hematocrit 36.7 % (37-47); Hemoglobin 12.6 g/dL (12.0-15.0); Lymphocyte # 1.62 X10^3/ul (0.83-4.51); Lymphocyte % 15.7 % (19-41); Mean Corp Hgb Conc 34.3 g/dL (32-36); Mean Corpuscular Hgb 26.3 pg (27.0-32.0); Mean Corpuscular Volume 76.5 fL (81-99); Mean Platelet Vol. 9.4 fl (6.2-12.0); Monocyte# 0.76 X10^3/uL; Monocyte% 7.4 % (0-10); NRBC Flagged by Analyzer 0 % (0-5); Neutrophil # 7.79 X10^3/uL (2.7-7.7); Neutrophil % 75.6 % (47-70); Platelet Count 429 K/mm3 (150-450); RBC Distribution Width SD 34.9 fl (35.1-43.9); White Blood Count 10.3 K/mm3 (4.4-11.0)
[2022-01-26 02:28] LABS: AST(SGOT) 13 U/L (15-37); Alanine Aminotransfer ALT/SGPT 27 U/L (13-56); Albumin, Serum 3.5 g/dL (3.2-5.0); Alkaline Phosphatase 69 U/L (45-117); Anion Gap 7 (5-15); BUN 15 mg/dL (7-18); Bilirubin, Direct 0.14 mg/dL (0.00-0.30); Calcium,Total 9.4 mg/dL (8.5-10.1); Chloride 85 mmol/L (98-107); Creatinine, Serum 0.94 mg/dL (0.55-1.02); EST Glomerular Filtration Rate 63 mL/min (>60); Est Glom Filt Rate - Afr Amer 77 mL/min (>60); Estimated Creatinine Clearance 46.56 ml/min; Globulin 3.5 g/dL (2.2-4.2); Glucose 112 mg/dL (74-106); Lipase 249 U/L (73-393); Potassium 3.8 mmol/L (3.5-5.1); Sodium Level 125 mmol/L (136-145)
[2022-01-26] MEDS: HYDROmorphone 1 MG/ML Syringe IV (03:29)
[2022-01-26] MEDS: proMETHazine 25 MG/ML Syringe IM (03:29)
[2022-01-26 03:35] VITALS: BP 158/67; PULSE 65; RESP 15; O2SAT 85
--- NOTE | 2022-01-26 03:48 | EX.ED.DYSGE1 ---
HPI History of Present Illness Chief Complaint: Nausea/Vomiting Narrative Narrative: Patient is a 66-year-old female who underwent laparoscopic cholecystectomy on January 23. She states it was a same-day procedure and she was discharged home later that evening. She states since returning home she has had persistent nausea with poor oral intake. She states that she is also been having some increasing upper abdominal pain associated with this. She denies any fevers or chills but states that she cannot tolerate food or fluids by mouth and is having persistent pain she presents for reevaluation [facility] Medical History Arthritis Back pain Diabetes Fatty liver Heartburn History of diverticulitis History of edema History of stress test Hypertension Low iron Non-smoker Shortness of breath on exertion Umbilical hernia Vertigo Wears glasses Wears partial dentures Home Medications aspirin 81 mg PO DAILY@0800 02/23/15 [History Last Taken 01/22/22] diltiazem HCl 300 mg PO DAILY 02/23/15 [History Last Taken 01/23/22 05:00] indapamide 5 mg PO DAILY 02/23/15 [History Last Taken 01/23/22 05:00] meloxicam 15 mg PO DAILY 02/23/15 [History Last Taken Unknown] potassium chloride [Klor-Con M20] 20 meq PO DAILY 02/23/15 [History Last Taken Unknown] calcium 600 mg PO DAILY 01/14/22 [History Last Taken Unknown] cholecalciferol (vitamin D3) [Vitamin D3] 125 mcg PO DAILY 01/14/22 [History Last Taken Unknown] hydrocodone-acetaminophen 1 tab PO Q6H PRN PRN 3 Days #10 tablet 01/14/22 [Rx Last Taken Unknown] multivitamin 1 tab PO DAILY 01/19/22 [History Last Taken Unknown] Probiotic 3,000 mmu cells PO DAILY 01/20/22 [History Last Taken Unknown] oxycodone 5 mg PO Q6H PRN 3 Days #11 tab 01/23/22 [Rx Last Taken Unknown] oxycodone 10 mg PO BID 5 Days #10 tab 01/26/22 [Rx Last Taken Unknown] prochlorperazine maleate [Compazine] 10 mg PO TID PRN #21 tab 01/26/22 [Rx Last Taken Unknown] Allergy/AdvReac Type Severity Reaction Status Date / Time BETA BLOCKERS Allergy Chest Uncoded 01/26/22 01:27 tightness Family History (Updated 01/19/22 @ 08:14 by Elina Wednesday) Mother Cancer Melanoma Father Heart disease Surgical History H/O partial resection of colon History of back surgery History of carpal tunnel release of both wrists History of hysterectomy History of repair of left rotator cuff History of right shoulder replacement Hx of colonoscopy Social History (Updated 01/19/22 @ 08:14 by Elina Wednesday) Smoking Status: Never smoker alcohol intake: never substance use type: does not use ROS ROS ED Constitutional Constitutional ED: Denies chills or fever(s) ENT ENT ED: Denies sore throat Cardiovascular Cardiovascular: Denies chest pain Respiratory/Chest Respiratory/Chest: Denies cough or dyspnea Gastrointestinal Gastrointestinal: Reports abdominal pain, constipation, nausea and vomiting; Denies diarrhea Genitourinary Genitourinary ED: Denies dysuria or hematuria Musculoskeletal Musculoskeletal: Reports back pain; Denies myalgias Integumentary Denies rash Neurologic Neurologic: Denies headache(s) Hematologic/Lymphatic Hematologic/Lymphatic: Denies easy bleeding or easy bruising EXAM Physical Exam Const Vital Signs: 01/26/22 01:22 01/26/22 03:35 01/26/22 03:49 Temperature 97.9 F Temperature Source Temporal Pulse Rate 65 65 58 L Respiratory Rate 18 15 14 Blood Pressure 190/68 H 158/67 H 179/85 H Blood Pressure Mean 108 97 116 Pulse Ox 99 85 98 Oxygen Delivery Method Room Air Room Air Nasal Cannula Oxygen Flow Rate (L/min) 3 01/26/22 04:19 Temperature Temperature Source Pulse Rate 64 Respiratory Rate 15 Blood Pressure 155/75 H Blood Pressure Mean 101 Pulse Ox 97 Oxygen Delivery Method Room Air Oxygen Flow Rate (L/min) Positive well nourished, well developed and obese General Appearance ED: well developed Nutritional Appearance: obese HEENT Reports dry mucous membranes Mouth ED: Yes dry mucous membranes Mouth: dry mucous membranes Eyes PERRL and EOMs intact bilaterally Neck supple Neck Narrative: No crepitance noted no pain with external manipulation of the thyroid cartilage Resp normal respiratory effort and clear to auscultation bilaterally Cardio regular rate and regular rhythm Rate: other Other Details: Radial pulses are plus 2 out of 4 bilaterally are equal and symmetric GI non-distended and no masses GI Narrative: Abdomen is obese soft and nondistended with hypoactive bowel sounds. There is mild generalized pain in the upper abdomen diffusely without voluntary guarding or rigidity. No pulsatile mass. No fluid wave. No increased tympany. There are surgical wounds present that are clean dry and intact without secondary changes to suggest infection. Palpation: soft Extremity normal to inspection Neuro oriented x3 and CN's II-XII intact bilaterally Sensorium / Orientation: alert Motor Exam: strength 5/5 throughout Psych mental status grossly normal Skin no rashes or lesions noted Skin Narrative: Skin turgor is increased MDM MDM MDM Narrative Medical decision making narrative: Patient presented to the ER hypertensive but is in pain and this is a normal physiologic response and otherwise with stable vitals. Her abdomen is soft and nonsurgical and therefore I feel there is no need for acute CT scan at this time. However with her reports of vomiting pain and recent surgery there is concern for ileus or even free air so I did elect to perform an acute abdominal x-ray. X-ray revealed no acute findings. Basic blood work was also obtained which does not show any type of leukocytosis or left shift. Patient does have a decreased to her sodium and chloride which is consistent with her symptoms but otherwise does not have acute kidney injury. With the pain being in the upper abdomen I did elect to perform an EKG which revealed normal sinus rhythm and was similar to the recent EKG she had from January 21 preop testing. Therefore this time I feel patient is simply having persistent pain and symptoms from gas distention associate with the laparoscopic surgery. Patient will receive IV hydration secondary to her reports of vomiting and poor oral intake as well as low electrolytes on laboratory studies. Patient will also be given pain control. Patient received morphine and Dilaudid and did have improvement of her pain. Zofran was added for the nausea but had no improvement so Phenergan was given which did reduce the nausea but patient still had a bout of vomiting. Therefore she was given Compazine. Following this she was able to tolerate a GI cocktail without bouts of vomiting and stated that the symptoms were improved. Her stomach remains soft and nonsurgical and therefore at this time as she has been rehydrated and now is able to tolerate liquid by mouth I do not feel there is need for placement and she can be discharged home and try outpatient medications once again. I will elect to start her on a sustained release narcotic based on her increased pain and recent surgery at this time Lab Data Attestation: I reviewed the patient's lab results. Labs: Laboratory Results - last 24 hr 01/26/22 01/26/22 01:35 01:35 WBC 10.3 RBC 4.80 Hgb 12.6 Hct 36.7 L MCV 76.5 L MCH 26.3 L MCHC 34.3 RDW Std Deviation 34.9 L RDW Coeff of Magno 13.0 Plt Count 429 MPV 9.4 Immature Gran % (Auto) 0.400 Neut % (Auto) 75.6 H Lymph % (Auto) 15.7 L [place] % (Auto) 7.4 Eos % (Auto) 0.8 Baso % (Auto) 0.1 Absolute Neuts (auto) 7.8 H Absolute Lymphs (auto) 1.62 Nucleated RBC % 0 Sodium 125 L Potassium 3.8 Chloride 85 L Carbon Dioxide 33.0 H Anion Gap 7 BUN 15 Creatinine 0.94 Estim Creat Clear Calc 46.56 Est GFR (MDRD) Af Amer 77 Est GFR (MDRD) Non-Af 63 BUN/Creatinine Ratio 16.0 Glucose 112 H Calcium 9.4 Total Bilirubin 0.40 Direct Bilirubin 0.14 AST 13 L ALT 27 Alkaline Phosphatase 69 Total Protein 7.0 Albumin 3.5 Globulin 3.5 Lipase 249 Radiography Diagnostic Testing: Clinical Impression(s) from Imaging Studies Acute Abdomen Series 01/26/22 01:43 IMPRESSION: No acute disease or change. Electronically Signed: Jeremy Gilman MD at 2:31 EDT , Acute abdominal series interpreted by the emergency medicine physician shows a nonspecific bowel gas pattern without free air or obvious obstructive pattern Discharge Plan Triage Chief Complaint: Nausea/Vomiting Other Complaint: Nausea/Vomiting/Diarrhea ED Provider: Gil Rascon Dx/Rx/DC Orders Clinical Impression: Acute postoperative abdominal pain, Nausea & vomiting, Dehydration Instructions: Dehydration, ED Vomiting (Adult) Prescriptions: New prochlorperazine maleate [Compazine] 10 mg tablet 10 mg PO TID PRN (Reason: nausea and vomiting) Qty: 21 RF: 0 oxycodone 10 mg tablet,oral only,ext.rel.12 hr 10 mg PO BID 5 Days Qty: 10 RF: 0 No Action multivitamin Tablet 1 tab PO DAILY RF: 0 indapamide 2.5 MG tablet 5 mg PO DAILY RF: 0 meloxicam 15 MG tablet 15 mg PO DAILY RF: 0 potassium chloride [Klor-Con M20] 20 MEQ tablet 20 meq PO DAILY RF: 0 diltiazem HCl 300 MG capsule 300 mg PO DAILY RF: 0 aspirin 81 MG tablet,chewable 81 mg PO DAILY@0800 RF: 0 calcium 600 mg Capsule 600 mg PO DAILY RF: 0 cholecalciferol (vitamin D3) [Vitamin D3] 125 mcg (5,000 unit) Tablet 125 mcg PO DAILY RF: 0 hydrocodone-acetaminophen 1 TABLET tablet 1 tab PO Q6H PRN PRN (Reason: Pain) 3 Days Qty: 10 RF: 0 Probiotic 3 billion cell Capsule 3,000 mmu cells PO DAILY RF: 0 oxycodone 5 mg tablet 5 mg PO Q6H PRN (Reason: pain) 3 Days Qty: 11 RF: 0 Primary Care Provider: Ashok Hernandez Referrals: Ashok Hernandez MD [Primary Care Provider] - Activity Restrictions/Additional Instructions: Please take the extended release oxycodone twice a day for improved pain control. You may continue to take the recently prescribed immediate oxycodone for breakthrough pain in between the 2 doses of the extended release medication. Please return to the ER should you have any further concerns or your symptoms are not controlled with outpatient treatment. Disposition Disposition: Home, Self Care
[2022-01-26 03:49] VITALS: BP 179/85; PULSE 58; RESP 14; O2SAT 98
[2022-01-26] MEDS: Mag Hydrox/Al Hydrox/Simeth 30 ML UDC PO (04:17)
[2022-01-26 04:19] VITALS: BP 155/75; PULSE 64; RESP 15; O2SAT 97
[2022-01-26] MEDS: proCHLORPERazine 10 MG/2 ML Vial IV (04:36)
[2022-01-26 05:23] VITALS: BP 142/81; PULSE 58; RESP 16; O2SAT 93
== END 2022-01-26 05:26 | disposition home or self-care (01) ==
PROVIDERS: Emergency Provider Emergency Medicine; PCP Family Medicine; Visit Provider Emergency Medicine
DX: E86.0 Dehydration (principal); E11.9 Type 2 diabetes mellitus without complications; R11.2 Nausea with vomiting, unspecified; R19.7 Diarrhea, unspecified; I10 Essential (primary) hypertension; M19.90 Unspecified osteoarthritis, unspecified site; Z79.82 Long term (current) use of aspirin; Z79.899 Other long term (current) drug therapy
CPT/HCPCS: 74022; 80048; 80076; 83690; 85025; 93005; 96361; 96372; 96374; 96375; 99285; J7030; A4216; J2405

== ENCOUNTER 2022-02-10 07:38 | Outpatient (CLI) | payer BC, MEDICARE, SELFPAY ==
--- NOTE | 2022-02-10 07:46 | CT_ITS ---
STUDY: CT Abdomen And Pelvis W/ Contrast Injection 02/10/2022 6:17 PM REASON FOR EXAM: Female, 66 years old. Abdominal pain Concern for possible hernias Individualized dose optimization techniques were used for this CT. COMPARISON: None. TECHNIQUE: CT Abdomen And Pelvis W/ Contrast Injection Oral and amp; IV Readi-CAT and amp; 100mL Isovue-300 FINDINGS: There are atherosclerotic calcifications of visualized coronary arteries. The visualized portions of the heart are within normal limits. Normal liver. There are surgical clips in the gallbladder fossa consistent with a prior cholecystectomy. Normal spleen. Normal pancreas. Normal bilateral adrenal glands. Non obstructive 2 mm right renal parenchymal stones. No acute findings of the left kidney. Focal wall thickening of the antrum of stomach. This can suggest a gastritis. Small bowel anastomosis noted. Stool throughout the colon. The appendix is visualized and appears normal. There are calcifications of the abdominal aorta. This is consistent for atherosclerotic disease. There is no abdominal aortic aneurysm. Normal inferior vena cava. Diffuse retroperitoneal adenopathy. Multiple mesenteric lymph nodes. Normal urinary bladder. There is absence of the uterus consistent with a prior hysterectomy.Left ventral hernia containing fat. There is a right lateral ventricle hernia containing a portion of the transverse colon. Strangulation or incarceration is not exclude. A prospective or current developing event such as an obstruction cannot be excluded. Physical examination may be warranted in individuals with hernias. Surveillance may be warranted in individuals with hernias. There is an umbilical hernia containing fat. There are diffuse degenerative changes of the visualized lumbar spine. Vacuum disc phenomenon. There is bilateral neural foraminal stenosis at L4-5 and L5-S1. Laminectomy changes. IMPRESSION: (NOT LISTED IN ORDER OF SIGNIFICANCE) Diffuse retroperitoneal adenopathy. Multiple mesenteric lymph nodes. Lymphoma should be considered. Gastritis. Non obstructive 2 mm right renal parenchymal stones. There is a right lateral ventricle hernia containing a portion of the transverse colon. Strangulation or incarceration is not exclude. A prospective or current developing event such as an obstruction cannot be excluded. Physical examination may be warranted in individuals with hernias. Surveillance may be warranted in individuals with hernias. Other findings as above. Electronically Signed: Darrell Mclain MD at 18:22 EDT , CT/Abdomen/Pelvis W IV Cont ONLY
== END 2022-02-10 23:59 | disposition home or self-care (01) ==
LOC: CT 07:40
PROVIDERS: PCP Family Medicine; Referring Provider Surgery; Visit Provider Surgery
DX: R10.9 Unspecified abdominal pain (principal)
CPT/HCPCS: 74177; Q9967

== ENCOUNTER 2022-12-20 18:28 | Emergency (ER) | payer BC, MEDICARE, SELFPAY ==
[2022-12-20 18:28] VITALS: BP 191/80; PULSE 71; RESP 14; TEMP 36.2; O2SAT 99; BMI 30.2
--- NOTE | 2022-12-20 18:44 | CT_ITS ---
EXAM: CT ABDOMEN AND PELVIS WITH INTRAVENOUS CONTRAST CLINICAL INDICATION: Right upper quadrant pain TECHNIQUE: Helically acquired images were obtained of the abdomen and pelvis with intravenous contrast. This CT exam was performed using one or more of the following dose reduction techniques: automated exposure control, adjustment of the mA and/or kV according to patient size, and/or use of iterative reconstruction technique. This report was created using [employer] report generation technology. CONTRAST: IV 100mL Isovue-370 COMPARISON: 02/10/2022 FINDINGS: LOWER THORAX: Mild cardiomegaly. Coronary artery calcifications. Lung bases are clear. No significant pericardial effusion. ABDOMEN: LIVER: Unremarkable. Homogeneous. No focal mass. GALLBLADDER AND BILE DUCTS: Cholecystectomy. No intra- or extrahepatic biliary ductal dilation. PANCREAS: Unremarkable. No focal cystic or solid mass. SPLEEN: Unremarkable. Normal size without focal cystic or solid mass. ADRENALS: Unremarkable. No nodules. KIDNEYS AND URETERS: Unremarkable. Normal renal size and position. No hydronephrosis. STOMACH AND BOWEL: Wall thickening of the distal stomach, with a possible ulcer noted in the anterior antrum, coronal image 38. Low ventral abdominal wall hernias again noted, one of which contains a portion of the transverse colon, without resulting obstruction. PELVIS: APPENDIX: No evidence of acute appendicitis. BLADDER: Unremarkable. REPRODUCTIVE: Hysterectomy. ABDOMEN and PELVIS: INTRAPERITONEAL SPACE: Unremarkable. No ascites or other fluid collection. No free air. BONES/JOINTS: Degenerative and postsurgical changes of the spine. No suspicious lytic or blastic abnormality. SOFT TISSUES: See above. VASCULATURE: No aortic aneurysm. LYMPH NODES: Multiple enlarged mesenteric and retroperitoneal lymph nodes. Mild interval worsening compared with the previous examination. CT/Abdomen/Pelvis W IV Cont ONLY IMPRESSION: 1. Wall thickening of the distal stomach, with a possible ulcer noted in the anterior antrum. Consider follow-up with upper endoscopy. 2. Multiple enlarged mesenteric and retroperitoneal lymph nodes. Mild interval worsening compared with the previous examination. Findings may indicate lymphoma or other malignancy. 3. Low ventral abdominal wall hernias again noted, one of which contains a portion of the transverse colon, without resulting obstruction. Electronically Signed: Darrell Crowell MD at 20:14 EST ,
--- NOTE | 2022-12-20 18:46 | ED.VIS.GI ---
HPI HPI - GI History of Present Illness Chief Complaint: Abd Pain Narrative Narrative: 67-year-old female past medical history of hypertension, had cholecystectomy performed by Dr. Butcher in January of last year. Over the last week and a half she has had right upper quadrant pain radiating to her back. If she had not had cholecystectomy, she would think that she was having another gallbladder attack because this is how it felt when she would have them. She is nauseated but has not vomited. She denies any fevers or chills. No true exacerbating or alleviating factors. [facility] Medical History Acute postoperative abdominal pain Arthritis Back pain Dehydration Diabetes Fatty liver Heartburn History of diverticulitis History of edema History of stress test Hypertension Low iron Nausea & vomiting Non-smoker Shortness of breath on exertion Symptomatic cholelithiasis Umbilical hernia Vertigo Wears glasses Wears partial dentures Home Medications aspirin 81 mg chewable tablet 81 mg PO DAILY@0800 02/23/15 [History Last Taken 01/22/22] diltiazem HCl 300 mg capsule,extended release 24 hr 300 mg PO DAILY 02/23/15 [History Last Taken 01/23/22 05:00] indapamide 2.5 mg tablet 5 mg PO DAILY 02/23/15 [History Last Taken 01/23/22 05:00] meloxicam 15 mg tablet 15 mg PO DAILY 02/23/15 [History Last Taken Unknown] potassium chloride 20 mEq tablet,extended release(part/cryst) (Klor-Con M) 20 meq PO DAILY 02/23/15 [History Last Taken Unknown] calcium 600 mg capsule 600 mg PO DAILY 01/14/22 [History Last Taken Unknown] cholecalciferol (vitamin D3) 125 mcg (5,000 unit) tablet (Vitamin D3) 125 mcg PO DAILY 01/14/22 [History Last Taken Unknown] multivitamin 1 tab PO DAILY 01/19/22 [History Last Taken Unknown] lactobacillus combination no.4 3 billion cell capsule (Probiotic) 3,000 mmu cells PO DAILY 01/20/22 [History Last Taken Unknown] oxycodone 5 mg tablet 5 mg PO Q6H PRN pain 3 days #11 tabs 01/23/22 [Rx Last Taken Unknown] omeprazole 40 mg capsule,delayed release 40 mg PO BID #60 caps 12/20/22 [Rx Last Taken Unknown] ondansetron 4 mg disintegrating tablet 4 mg PO Q6H PRN nausea and vomiting #15 tabs 12/20/22 [Rx Last Taken Unknown] sucralfate 1 gram tablet (Carafate) 1 g PO BID #60 tabs 12/20/22 [Rx Last Taken Unknown] Allergy/AdvReac Type Severity Reaction Status Date / Time Beta-Blockers Allergy Chest Verified 12/20/22 18:30 (Beta-Adrenergic Bloc tightness Family History Mother Cancer Melanoma Father Heart disease Surgical History H/O partial resection of colon History of back surgery History of carpal tunnel release of both wrists History of hysterectomy History of laparoscopic cholecystectomy History of repair of left rotator cuff History of right shoulder replacement Hx of colonoscopy Social History Smoking Status: Never smoker alcohol intake: never substance use type: does not use ROS ROS ED ROS Narrative Constitutional: No fever, no chills. HEENT: No sore throat. No neck pain. No loss of vision. No rhinorrhea. Cardiovascular: No chest pain. No palpitations. No pedal edema. Respiratory: Occasional cough, no shortness of breath. Abdominal: Right upper quadrant, radiating to back abdominal pain. Positive nausea. No vomiting. No problems with bowel movements, no diarrhea. Genitourinary: No dysuria. No hematuria. Musculoskeletal: No myalgias. No arthralgias. Neurologic: No headaches. No dizziness. No lightheadedness. Skin: No rash. No change in color. Psychiatric: No depression. No anxiety. EXAM Physical Exam Narrative Exam Narrative: Afebrile. Vital signs noted. HEENT: Normocephalic. Atraumatic. PERRL, EOMI. Neck soft and supple. No point tenderness or step off. Cardiovascular: Regular rate and rhythm. No murmurs, rubs, or gallops appreciated. Respiratory: No tachypnea. Lungs clear to auscultation bilaterally. Gastrointestinal: Abdomen soft, mild tenderness right upper quadrant, negative Obregon sign, with normoactive bowel sounds. No rebound or guarding. Neurological: Awake. Alert. Nonfocal, nonlateralizing. Skin: No rash. Normal color. No pallor. Musculoskeletal: No pedal edema. Full range of motion extremities. Const Vital Signs: 12/20/22 18:28 Temperature 97.2 F L Temperature Source Temporal Pulse Rate 71 Respiratory Rate 14 Blood Pressure 191/80 H Blood Pressure Mean 117 Pulse Ox 99 Oxygen Delivery Method Room Air MDM MDM MDM Narrative Medical decision making narrative: As the patient is status postcholecystectomy, they have no concern for cholecystitis. I reviewed her prior records. She may have had postoperative ileus causing abdominal pain. Comprehensive work-up was pursued. She was administered normal saline 1 L intravenously, morphine, and then down to [place] intravenously for analgesia. CT imaging will be obtained with IV contrast and I will check her CBC, CMP, and lipase to look for pancreatitis. I reviewed the patient's laboratory work, she has a normal white count of 8.5, hemoglobin normal at 13.6, hematocrit 39.6. Platelet count normal at 403. Review of the CMP shows sodium slightly low at 128 with chloride 89, but she was bolused normal saline 1 L intravenously which should improve that. BUN normal at 14 with creatinine 0.82. AST low at 12 and ALT also low at 12. Normal alk phos of 91. Urinalysis negative for infection. Lipase normal at 116. I reviewed the CT report. She does have thickening of the distal stomach with perhaps an ulcer noted. There is a low ventral hernia come containing a portion of the transverse colon but no evidence of obstruction. Given her gastric ulcer, I discussed patient with Dr. Garibay so that she can follow-up for upper endoscopy. He would like her started on omeprazole 40 mg along with Carafate 1 g twice a day. She was given her first doses here in the emergency department and prescriptions written for each, including Zofran No. 15 to help with her nausea. At this point in time, I feel she be discharged safely home with follow-up. Of note, on her CT scan there are mesenteric lymph nodes that are enlarged. They may have worsened from her last CT. She will follow-up with her primary care provider regarding this. I feel she be discharged safely home. Return instructions reviewed. Disposition is discharged home in stable condition. Lab Data Attestation: I reviewed the patient's lab results. Labs: Laboratory Results - last 24 hr 12/20/22 12/20/22 12/20/22 18:50 18:50 18:50 WBC 8.5 RBC 4.93 Hgb 13.6 Hct 39.6 MCV 80.3 L MCH 27.6 MCHC 34.3 RDW Std Deviation 34.9 L RDW Coeff of Magno 12.1 Plt Count 403 MPV 9.0 Immature Gran % (Auto) 0.200 Neut % (Auto) 73.9 H Lymph % (Auto) 17.1 L [place] % (Auto) 6.6 Eos % (Auto) 1.7 Baso % (Auto) 0.5 Absolute Neuts (auto) 6.3 Absolute Lymphs (auto) 1.45 Nucleated RBC % 0 Sodium 128 L Potassium 3.6 Chloride 89 L Carbon Dioxide 28.0 Anion Gap 11 BUN 14 Creatinine 0.82 Estim Creat Clear Calc 52.65 Est GFR (MDRD) Af Amer 89 Est GFR (MDRD) Non-Af 74 BUN/Creatinine Ratio 17.0 Glucose 108 H Calcium 9.8 Total Bilirubin 0.40 AST 12 L ALT 12 L Alkaline Phosphatase 91 Total Protein 7.6 Albumin 3.8 Globulin 3.8 Albumin/Globulin Ratio 1.0 Lipase 116 Urine Color Yellow Urine Clarity Clear Urine pH 8.0 Ur Specific [place] 1.010 Urine Protein Negative Urine Glucose (UA) Normal Urine Ketones Negative Urine Occult Blood Negative Urine Nitrite Negative Urine Bilirubin Negative Urine Urobilinogen Normal Ur Leukocyte Esterase Negative Urine RBC 0 SEEN Urine WBC 0 SEEN Ur Squamous Epith Cells 0-5 SEEN Urine Bacteria 0 SEEN Urine Mucus 0 SEEN Radiography Diagnostic Testing: Clinical Impression(s) from Imaging Studies Abdomen/Pelvis CT 12/20/22 18:44 IMPRESSION: 1. Wall thickening of the distal stomach, with a possible ulcer noted in the anterior antrum. Consider follow-up with upper endoscopy. 2. Multiple enlarged mesenteric and retroperitoneal lymph nodes. Mild interval worsening compared with the previous examination. Findings may indicate lymphoma or other malignancy. 3. Low ventral abdominal wall hernias again noted, one of which contains a portion of the transverse colon, without resulting obstruction. Electronically Signed: Darrell Crowell MD at 20:14 EST , Chest X-Ray 12/20/22 19:43 IMPRESSION: No acute findings in the chest. Electronically Signed: Darrell Crowell MD at 20:08 EST , Discharge Plan Triage Chief Complaint: Abd Pain ED Provider: Agusto Gardner Dx/Rx/DC Orders Clinical Impression: Abdominal pain, RUQ, Gastric ulcer, Nausea Instructions: Understanding Gastric Ulcers, ED Abdominal Pain Unkn Cause Fem, ED Gastritis Ulcer No Abx Prescriptions: New omeprazole 40 mg capsule,delayed release(DR/EC) 40 mg PO BID Qty: 60 0RF sucralfate [Carafate] 1 gram tablet 1 g PO BID Qty: 60 0RF ondansetron 4 mg tablet,disintegrating 4 mg PO Q6H PRN (Reason: nausea and vomiting) Qty: 15 0RF No Action multivitamin Tablet 1 tab PO DAILY indapamide 2.5 MG tablet 5 mg PO DAILY meloxicam 15 MG tablet 15 mg PO DAILY potassium chloride [Klor-Con M20] 20 MEQ tablet 20 meq PO DAILY diltiazem HCl 300 MG capsule 300 mg PO DAILY aspirin 81 MG tablet,chewable 81 mg PO DAILY@0800 calcium 600 mg Capsule 600 mg PO DAILY cholecalciferol (vitamin D3) [Vitamin D3] 125 mcg (5,000 unit) Tablet 125 mcg PO DAILY Probiotic 3 billion cell Capsule 3,000 mmu cells PO DAILY oxycodone 5 mg tablet 5 mg PO Q6H PRN (Reason: pain) 3 Days Qty: 11 0RF Primary Care Provider: Ashok Hernandez Referrals: Ashok Hernandez MD [Primary Care Provider] - Friend,DO [facility] [Med Staff - Active Staff] - As soon as possible Disposition Disposition: Home, Self Care
[2022-12-20 19:00] LABS: Bacteria 0 SEEN /hpf (None Seen); Mucous, Urine 0 SEEN /hpf (<or=2+); Red Blood Cells-Urine 0 SEEN /hpf (0-5); White Blood Cells 0 SEEN /hpf (0-5)
[2022-12-20 19:05] LABS: Color, Urine Yellow (Yellow); Glucose, Dipstick Normal (Normal); Ketone-Dipstick Negative (Negative); Leukocyte Esterase-Dipstick Negative /ul (Negative); Nitrite-Dipstick Negative (Negative); Occult Blood-Urine Negative /ul (Negative); Protein-Dipstick Negative (Negative); Urine Bilirubin Dipstick Negative (Negative); Urine Clarity Clear (Clear); Urine Urobilinogen Normal (Normal)
[2022-12-20 19:07] LABS: Absolute Lymphocyte Count 1.45 X10^3/uL (0.83-4.51); Absolute Neutrophil Count 6.3 X10^3/uL (2.0-7.7); Basophil# 0.04 X10^3/uL; Basophil% 0.5 % (0-1); Eosinophil# 0.14 X10^3/uL; Eosinophils% 1.7 % (0-5); Hematocrit 39.6 % (37-47); Hemoglobin 13.6 g/dL (12.0-15.0); Lymphocyte # 1.45 X10^3/ul (0.83-4.51); Lymphocyte % 17.1 % (19-41); Mean Corp Hgb Conc 34.3 g/dL (32-36); Mean Corpuscular Hgb 27.6 pg (27.0-32.0); Mean Corpuscular Volume 80.3 fL (81-99); Monocyte# 0.56 X10^3/uL; Monocyte% 6.6 % (0-10); NRBC Flagged by Analyzer 0 % (0-5); Neutrophil # 6.27 X10^3/uL (2.7-7.7); Neutrophil % 73.9 % (47-70); Platelet Count 403 K/mm3 (150-450); RBC Distribution Width CV 12.1 % (11.6-14.6); RBC Distribution Width SD 34.9 fl (35.1-43.9); Red Blood Count 4.93 M/mm3 (4.2-5.4); White Blood Count 8.5 K/mm3 (4.4-11.0)
[2022-12-20 19:20] LABS: Squamous Epithelial Cells - UA 0-5 SEEN /hpf (5-10)
[2022-12-20 19:23] LABS: AST(SGOT) 12 U/L (15-37); Alanine Aminotransfer ALT/SGPT 12 U/L (13-56); Albumin, Serum 3.8 g/dL (3.2-5.0); Alkaline Phosphatase 91 U/L (45-117); Anion Gap 11 (5-15); BUN 14 mg/dL (7-18); Calcium,Total 9.8 mg/dL (8.5-10.1); Chloride 89 mmol/L (98-107); Creatinine, Serum 0.82 mg/dL (0.55-1.02); EST Glomerular Filtration Rate 74 mL/min (>60); Est Glom Filt Rate - Afr Amer 89 mL/min (>60); Estimated Creatinine Clearance 52.65 ml/min; Globulin 3.8 g/dL (2.2-4.2); Glucose 108 mg/dL (74-106); Lipase 116 U/L (73-393); Potassium 3.6 mmol/L (3.5-5.1); Protein, Total 7.6 g/dL (6.4-8.2); Sodium Level 128 mmol/L (136-145)
[2022-12-20] MEDS: Ondansetron 4 MG/2 ML Vial IV ×2 (19:33→20:26)
[2022-12-20] MEDS: HYDROmorphone 0.5 MG/0.5 ML SYRINGE IV (19:33)
[2022-12-20] MEDS: 0.9% Normal Saline 1,000 ML 1000 ML IV (19:33)
--- NOTE | 2022-12-20 19:43 | RAD_ITS ---
EXAM: XR CHEST, 1 VIEW CLINICAL INDICATION: Cough TECHNIQUE: Frontal view of the chest. This report was created using [employer] report generation technology. COMPARISON: 01/26/2022 FINDINGS: LUNGS AND PLEURAL SPACES: Unremarkable. No consolidation or edema. No pneumothorax. No effusion. HEART: Mild enlargement of the cardiac silhouette. MEDIASTINUM: Central airways and mediastinal contour are unremarkable. BONES/JOINTS: Unremarkable. SOFT TISSUES: Unremarkable. RAD/Chest 1 View (Portable) IMPRESSION: No acute findings in the chest. Electronically Signed: Darrell Crowell MD at 20:08 EST ,
[2022-12-20] MEDS: Pantoprazole Sodium 40 MG Tablet PO (21:23)
[2022-12-20 21:24] VITALS: O2SAT 99
[2022-12-20] MEDS: Sucralfate 1 GM Tablet PO (21:57)
== END 2022-12-20 22:05 | disposition home or self-care (01) ==
PROVIDERS: Emergency Provider Emergency Medicine; PCP Family Medicine; Visit Provider Emergency Medicine
DX: R10.11 Right upper quadrant pain (principal); E11.9 Type 2 diabetes mellitus without complications; K25.9 Gastric ulcer, unspecified as acute or chronic, without hemorrhage or perforation; K43.9 Ventral hernia without obstruction or gangrene; R59.0 Localized enlarged lymph nodes; I10 Essential (primary) hypertension; Z90.49 Acquired absence of other specified parts of digestive tract
CPT/HCPCS: 71045; 74177; 80053; 81001; 83690; 85025; 96361; 96374; 96375; 96376; 99283; J7030; Q9967; A4216; J2405

== ENCOUNTER 2023-02-01 07:46 | Inpatient (IN) | payer BC, MEDICARE, SELFPAY ==
[2023-02-01 07:47] VITALS: BP 176/76; PULSE 82; RESP 16; TEMP 36.6; O2SAT 99; BMI 29.3
--- NOTE | 2023-02-01 07:49 | EDS_ITS ---
HPI History of Present Illness Chief Complaint: Nausea/Vomiting Narrative Narrative: 67-year-old female here for nausea and vomiting since yesterday afternoon. Does note stomach cramps. States she has stomach issues which she sees GI doctor for. Patient states she is got diffuse abdominal pain. States she tried to take omeprazole, Zofran however was not effective. Notes last bowel movement was this morning. There is no melena or hematochezia. There is no bilious nature of vomitus or hematemesis noted. Denies any falls or other trauma. [facility] Medical History Acute postoperative abdominal pain Arthritis Back pain Dehydration Diabetes Fatty liver Heartburn History of diverticulitis History of edema History of stress test Hypertension Low iron Nausea & vomiting Non-smoker Shortness of breath on exertion Symptomatic cholelithiasis Umbilical hernia Vertigo Wears glasses Wears partial dentures Home Medications aspirin 81 mg chewable tablet 81 mg PO DAILY@0800 02/23/15 [History Last Taken 01/22/22] diltiazem HCl 300 mg capsule,extended release 24 hr 300 mg PO DAILY 02/23/15 [History Last Taken 01/23/22 05:00] indapamide 2.5 mg tablet 5 mg PO DAILY 02/23/15 [History Last Taken 01/23/22 05:00] meloxicam 15 mg tablet 15 mg PO DAILY 02/23/15 [History Last Taken Unknown] potassium chloride 20 mEq tablet,extended release(part/cryst) (Klor-Con M) 20 meq PO DAILY 02/23/15 [History Last Taken Unknown] calcium 600 mg capsule 600 mg PO DAILY 01/14/22 [History Last Taken Unknown] cholecalciferol (vitamin D3) 125 mcg (5,000 unit) tablet (Vitamin D3) 125 mcg PO DAILY 01/14/22 [History Last Taken Unknown] multivitamin 1 tab PO DAILY 01/19/22 [History Last Taken Unknown] lactobacillus combination no.4 3 billion cell capsule (Probiotic) 3,000 mmu cells PO DAILY 01/20/22 [History Last Taken Unknown] oxycodone 5 mg tablet 5 mg PO Q6H PRN pain 3 days #11 tabs 01/23/22 [Rx Last Taken Unknown] ondansetron 4 mg disintegrating tablet 4 mg PO Q6H PRN nausea and vomiting #15 tabs 12/20/22 [Rx Last Taken Unknown] sucralfate 1 gram tablet (Carafate) 1 g PO BID #60 tabs 12/20/22 [Rx Last Taken Unknown] omeprazole 40 mg capsule,delayed release 40 mg PO BID #60 caps 01/12/23 [Rx Last Taken Unknown] Allergy/AdvReac Type Severity Reaction Status Date / Time Beta-Blockers Allergy Chest Verified 02/01/23 07:46 (Beta-Adrenergic Bloc tightness Family History Mother Cancer Melanoma Father Heart disease Surgical History H/O partial resection of colon History of back surgery History of carpal tunnel release of both wrists History of hysterectomy History of laparoscopic cholecystectomy History of repair of left rotator cuff History of right shoulder replacement Hx of colonoscopy Social History Smoking Status: Never smoker alcohol intake: never substance use type: does not use ROS ROS ED ROS Narrative Constitutional: Denies fever HEENT: Denies sore throat Neck: Denies neck pain Cardiovascular: Denies chest pain, syncope Respiratory: Denies shortness of breath GI: Endorses abdominal pain, nausea vomiting : Denies changes in urinary habits Musculoskeletal: Denies muscle or joint pain Neurologic: Denies numbness weakness or loss of sensation Skin denies rash EXAM Physical Exam Narrative Exam Narrative: Nursing triage notes reviewed, Vital signs reviewed Constitutional: please see mdm HENT: MMM Eyes: Pupils equal round and reactive to light, Extraocular muscles intact Neck: No stridor, no JVD, full neck ROM Lungs: Clear to auscultation, No wheezing or rales. No increased work of breathing, no conversational dyspnea, no accessory muscle use, no nasal flaring. No respiratory distress noted Heart: Regular rate and rhythm, No murmurs, No rubs and No gallops, 2+ distal pulses (radial, femoral, posterior tibial) in all extremities Abdomen: Soft, there is no rigidity, rebound or guarding, no obvious peritoneal signs, no palpable pulsatile abdominal masses, no auscultated abdominal bruit : No CVAT Extremities: No edema Neuro: No focal neurological deficits, cranial nerves II through XII intact, 5/5 strength in all extremities. Intact sensation to light touch in all extremities, 2+ reflexes bilateral patella dens. Normal gait. No ataxia. Skin: No rash or lesions noted Const Vital Signs: 02/01/23 07:47 Temperature 97.8 F Temperature Source Temporal Pulse Rate 82 Respiratory Rate 16 Blood Pressure 176/76 H Blood Pressure Mean 109 Pulse Ox 99 Oxygen Delivery Method Room Air MDM MDM MDM Narrative Medical decision making narrative: Chief Complaint: Abdominal pain, nausea, External records reviewed: Last ED visit in November for abdominal pain. Started omeprazole that time given GI follow-up. Seen by GI on 01/12/2023. Recommended gastric emptying study I considered the following differential diagnosis: AAA, small bowel obstruction, abdominal perforation, appendicitis, pancreatitis, hepatobiliary pathology (acute cholecystitis), mesenteric ischemia, abnormalities such as ovarian pathology, PID. I obtained CT scan rule out acute surgical intra-abdominal pathology, labs rule out signs of pancreatitis, hepatobiliary obstruction, dehydration, acute kidney injury, electrolyte abnormalities signs of systemic inflammation. Patient was given 1 L of normal saline, Zofran and Pepcid for symptomatic relief and nausea vomiting control. Labs and images were remarkable for of small bowel obstruction secondary to ventral hernia. Consulted general surgery immediately. General surgeon will see the patient in the emergency department determine need for acute surgical intervention. The general surgeon did not think the patient had an acute surgical pathology. Do not think the patient had an obstruction or incarcerated hernia. Suggested NG tube, nausea vomiting control, admission for further management and evaluation. Discussed case with hospitalist who accepted the patient's case. Factors affecting care: History of cholecystectomy, history of ventral hernia Social determinants of health: Never smoker History obtained from others: None Shared decision making: I will have a discussion with the patient and or visitors regarding risk/benefits of further testing or admission. They will be made aware of of the risk/benefits inherent in this decision they will be given the opportunity to voice understanding. Consults: General Surgery Dr. Trinh, hospitalist Lab Data Attestation: I reviewed the patient's lab results. Lab results narrative: CBC without leukocytosis, severe anemia, no thrombocytopenia. BMP with hyponatremia, mild DIONISIO, no hepatobiliary obstruction, no anion gap to suggest endorgan hypoperfusion Lipase is wnl indicating no pancreatic inflammation. Lactate is wnl indicating no end-organ hypoperfusion and/or hypoxia. Labs: Laboratory Results - last 24 hr 02/01/23 02/01/23 02/01/23 08:01 08:01 10:20 WBC 10.7 RBC 5.58 H Hgb 15.2 H Hct 44.3 MCV 79.4 L MCH 27.2 MCHC 34.3 RDW Std Deviation 35.8 RDW Coeff of Magno 12.7 Plt Count 349 MPV 9.7 Immature Gran % (Auto) 0.300 Neut % (Auto) 89.6 H Lymph % (Auto) 6.8 L [place] % (Auto) 2.5 Eos % (Auto) 0.4 Baso % (Auto) 0.4 Absolute Neuts (auto) 9.6 H Absolute Lymphs (auto) 0.73 L Nucleated RBC % 0 Sodium 124 L Potassium 3.6 Chloride 89 L Carbon Dioxide 28.0 Anion Gap 7 BUN 17 Creatinine 1.13 H Estim Creat Clear Calc 38.21 Est GFR (MDRD) Af Amer 62 Est GFR (MDRD) Non-Af 51 L BUN/Creatinine Ratio 15.0 Glucose 138 H Lactic Acid 0.8 Calcium 10.3 H Total Bilirubin 0.50 Direct Bilirubin 0.21 AST 19 ALT 20 Alkaline Phosphatase 89 Total Protein 7.3 Albumin 4.1 Globulin 3.2 Lipase 126 Radiography Diagnostic Testing: Clinical Impression(s) from Imaging Studies Abdomen/Pelvis CT 02/01/23 08:04 IMPRESSION: Incarcerated hernia causing small bowel obstruction 1. Incarcerated small bowel in the right paraumbilical hernia sac causing mild to moderate distention of the small bowel loops proximal to the obstruction. Electronically Signed: Huey Bryant MD at 10:09 EDT Reading Location ID and State: [facility] / [place] , Service support , ADDENDUM: 02/01/23 1017 IMPRESSION: Incarcerated hernia causing small bowel obstruction 1. Incarcerated small bowel in the right paraumbilical hernia sac causing mild to moderate distention of the small bowel loops proximal to the obstruction. N.B. : The above Results were Read Back by Huey Bryant MD to Ricco Nazario MD, and understanding confirmed on 02/01/2023 10:10:57 (ET). Electronically Signed: Huey Bryant MD at 10:09 EDT , ADDENDUM: 02/01/23 1127 IMPRESSION: High-grade small bowel ileus. No definite lead point or obstruction of the small bowel seen. If a follow-up study is required small bowel follow-through or study with oral contrast is recommended. Electronically Signed: Huey Bryant MD at 11:20 EDT , N.B. : The above Results were Read Back by Huey Bryant MD to Ricco Nazario MD, and understanding confirmed on 02/01/2023 10:10:57 (ET). Management Discussion w/another healthcare provider: Hospitalist and Medical Office Assistant Discharge Plan Triage Chief Complaint: Nausea/Vomiting ED Provider: Ricco Nazario Dx/Rx/DC Orders Clinical Impression: Ileus, Ventral hernia, Acute hyponatremia, Acute dehydration Prescriptions: No Action multivitamin Tablet 1 tab PO DAILY omeprazole 40 mg capsule,delayed release(DR/EC) 40 mg PO BID Qty: 60 0RF Rx Instructions: Continue two times a day for four weeks then once a day indapamide 2.5 MG tablet 5 mg PO DAILY meloxicam 15 MG tablet 15 mg PO DAILY potassium chloride [Klor-Con M20] 20 MEQ tablet 20 meq PO DAILY diltiazem HCl 300 MG capsule 300 mg PO DAILY aspirin 81 MG tablet,chewable 81 mg PO DAILY@0800 calcium 600 mg Capsule 600 mg PO DAILY cholecalciferol (vitamin D3) [Vitamin D3] 125 mcg (5,000 unit) Tablet 125 mcg PO DAILY Probiotic 3 billion cell Capsule 3,000 mmu cells PO DAILY oxycodone 5 mg tablet 5 mg PO Q6H PRN (Reason: pain) 3 Days Qty: 11 0RF sucralfate [Carafate] 1 gram tablet 1 g PO BID Qty: 60 0RF ondansetron 4 mg tablet,disintegrating 4 mg PO Q6H PRN (Reason: nausea and vomiting) Qty: 15 0RF Primary Care Provider: Ashok Hernandez Referrals: Ashok Hernandez MD [Primary Care Provider] - Disposition Disposition: Acute Care Hospital [facility]
--- NOTE | 2023-02-01 08:04 | CT_ITS ---
We are attempting to reach an attending provider to discuss findings. An addendum with communication details will be sent when the communication is complete. STUDY: CT ABDOMEN AND PELVIS WITH CONTRAST REASON FOR EXAM: Female, 67 years old. Diffuse abdominal pain, nausea and vomiting HX COLON RESECTION, HTN,DM,HYSTER,HELGA, RADIATION DOSAGE (If Supplied By Facility): CTDIvol = ( 17.81 ) mGy, DLP = ( 1328.65 ) mGycm TECHNIQUE: Transaxial images were obtained from the dome of the diaphragm to the symphysis pubis without oral contrast. ml of 100mL Isovue-370 contrast was administered. Sagittal and coronal images were reconstructed. Individualized dose optimization techniques were used for this CT. COMPARISON: CT of abdomen and pelvis dated February 10, 2022 FINDINGS: The visualized lung bases are unremarkable. The visualized portions of the heart are within normal limits. Normal liver. There are surgical clips in the gallbladder fossa consistent with a prior cholecystectomy. Normal spleen. Normal pancreas. Normal bilateral adrenal glands. Normal right kidney. Normal left kidney. Small bowel obstruction is present with mild to moderate fluid distention starting at the third portion of duodenum and continuing into the right paraumbilical hernia sac due to incarceration of the loop of bowel across the neck of the hernia sac. The right paraumbilical hernia sac measures 8.48 cm in diameter. The left anterior abdominal wall hernia measures 5.80 cm in diameter. Redemonstration of surgical suture material and patulous loop of bowel at the right colon resection surgical site. Redemonstration of surgical clips around the rectosigmoid colonic region. A small amount of ascites is present. There is non-visualization of the appendix. There is diffuse atherosclerotic calcification of the abdominal aorta, without a demonstrated aneurysm. Normal inferior vena cava. Normal retroperitoneum. Normal urinary bladder. There is absence of the uterus consistent with a prior hysterectomy. Normal abdominal wall. There are diffuse degenerative changes of the visualized lumbar spine. Stable lumbar spine hardware and chronic postoperative changes. CT/Abdomen/Pelvis W IV Cont ONLY IMPRESSION: Incarcerated hernia causing small bowel obstruction 1. Incarcerated small bowel in the right paraumbilical hernia sac causing mild to moderate distention of the small bowel loops proximal to the obstruction. Electronically Signed: Huey Bryant MD at 10:09 EDT ,
[2023-02-01] MEDS: 0.9% Normal Saline 1,000 ML 1000 ML IV (08:14)
[2023-02-01] MEDS: Ondansetron 4 MG/2 ML Vial IV ×2 (08:14→14:14)
[2023-02-01 08:37] LABS: Absolute Lymphocyte Count 0.73 X10^3/uL (0.83-4.51); Absolute Neutrophil Count 9.6 X10^3/uL (2.0-7.7); Basophil# 0.04 X10^3/uL; Basophil% 0.4 % (0-1); Eosinophil# 0.04 X10^3/uL; Eosinophils% 0.4 % (0-5); Hematocrit 44.3 % (37-47); Hemoglobin 15.2 g/dL (12.0-15.0); Lymphocyte # 0.73 X10^3/ul (0.83-4.51); Lymphocyte % 6.8 % (19-41); Mean Corp Hgb Conc 34.3 g/dL (32-36); Mean Corpuscular Hgb 27.2 pg (27.0-32.0); Mean Corpuscular Volume 79.4 fL (81-99); Mean Platelet Vol. 9.7 fl (6.2-12.0); Monocyte# 0.27 X10^3/uL; Monocyte% 2.5 % (0-10); NRBC Flagged by Analyzer 0 % (0-5); Neutrophil # 9.55 X10^3/uL (2.7-7.7); Neutrophil % 89.6 % (47-70); Platelet Count 349 K/mm3 (150-450); RBC Distribution Width CV 12.7 % (11.6-14.6); RBC Distribution Width SD 35.8 fl (35.1-43.9); Red Blood Count 5.58 M/mm3 (4.2-5.4); White Blood Count 10.7 K/mm3 (4.4-11.0)
[2023-02-01] MEDS: Famotidine 200 MG/20 ML MDV 20 MG in 0.9% Normal Saline (Pres. free 8 ML 300 MG IV (08:48)
[2023-02-01 08:55] LABS: AST(SGOT) 19 U/L (15-37); Alanine Aminotransfer ALT/SGPT 20 U/L (13-56); Albumin, Serum 4.1 g/dL (3.2-5.0); Alkaline Phosphatase 89 U/L (45-117); Anion Gap 7 (5-15); BUN 17 mg/dL (7-18); Bilirubin, Direct 0.21 mg/dL (0.00-0.30); Calcium,Total 10.3 mg/dL (8.5-10.1); Chloride 89 mmol/L (98-107); Creatinine, Serum 1.13 mg/dL (0.55-1.02); EST Glomerular Filtration Rate 51 mL/min (>60); Est Glom Filt Rate - Afr Amer 62 mL/min (>60); Estimated Creatinine Clearance 38.21 ml/min; Globulin 3.2 g/dL (2.2-4.2); Glucose 138 mg/dL (74-106); Lipase 126 U/L (73-393); Potassium 3.6 mmol/L (3.5-5.1); Protein, Total 7.3 g/dL (6.4-8.2); Sodium Level 124 mmol/L (136-145)
--- NOTE | 2023-02-01 09:20 | EX.ED.DYSGE1 ---
HPI History of Present Illness Chief Complaint: Nausea/Vomiting [facility] Medical History Acute postoperative abdominal pain Arthritis Back pain Dehydration Diabetes Fatty liver Heartburn History of diverticulitis History of edema History of stress test Hypertension Low iron Nausea & vomiting Non-smoker Shortness of breath on exertion Symptomatic cholelithiasis Umbilical hernia Vertigo Wears glasses Wears partial dentures Home Medications aspirin 81 mg chewable tablet 81 mg PO DAILY@0800 02/23/15 [History Last Taken 01/22/22] diltiazem HCl 300 mg capsule,extended release 24 hr 300 mg PO DAILY 02/23/15 [History Last Taken 01/23/22 05:00] indapamide 2.5 mg tablet 5 mg PO DAILY 02/23/15 [History Last Taken 01/23/22 05:00] meloxicam 15 mg tablet 15 mg PO DAILY 02/23/15 [History Last Taken Unknown] potassium chloride 20 mEq tablet,extended release(part/cryst) (Klor-Con M) 20 meq PO DAILY 02/23/15 [History Last Taken Unknown] calcium 600 mg capsule 600 mg PO DAILY 01/14/22 [History Last Taken Unknown] cholecalciferol (vitamin D3) 125 mcg (5,000 unit) tablet (Vitamin D3) 125 mcg PO DAILY 01/14/22 [History Last Taken Unknown] multivitamin 1 tab PO DAILY 01/19/22 [History Last Taken Unknown] lactobacillus combination no.4 3 billion cell capsule (Probiotic) 3,000 mmu cells PO DAILY 01/20/22 [History Last Taken Unknown] oxycodone 5 mg tablet 5 mg PO Q6H PRN pain 3 days #11 tabs 01/23/22 [Rx Last Taken Unknown] ondansetron 4 mg disintegrating tablet 4 mg PO Q6H PRN nausea and vomiting #15 tabs 12/20/22 [Rx Last Taken Unknown] sucralfate 1 gram tablet (Carafate) 1 g PO BID #60 tabs 12/20/22 [Rx Last Taken Unknown] omeprazole 40 mg capsule,delayed release 40 mg PO BID #60 caps 01/12/23 [Rx Last Taken Unknown] Allergy/AdvReac Type Severity Reaction Status Date / Time Beta-Blockers Allergy Chest Verified 02/01/23 07:46 (Beta-Adrenergic Bloc tightness Family History Mother Cancer Melanoma Father Heart disease Surgical History H/O partial resection of colon History of back surgery History of carpal tunnel release of both wrists History of hysterectomy History of laparoscopic cholecystectomy History of repair of left rotator cuff History of right shoulder replacement Hx of colonoscopy Social History Smoking Status: Never smoker alcohol intake: never substance use type: does not use EXAM Physical Exam Const Vital Signs: 02/01/23 07:47 Temperature 97.8 F Temperature Source Temporal Pulse Rate 82 Respiratory Rate 16 Blood Pressure 176/76 H Blood Pressure Mean 109 Pulse Ox 99 Oxygen Delivery Method Room Air [facility] MDM Lab Data Labs: Laboratory Results - last 24 hr 02/01/23 02/01/23 02/01/23 08:01 08:01 10:20 WBC 10.7 RBC 5.58 H Hgb 15.2 H Hct 44.3 MCV 79.4 L MCH 27.2 MCHC 34.3 RDW Std Deviation 35.8 RDW Coeff of Magno 12.7 Plt Count 349 MPV 9.7 Immature Gran % (Auto) 0.300 Neut % (Auto) 89.6 H Lymph % (Auto) 6.8 L [place] % (Auto) 2.5 Eos % (Auto) 0.4 Baso % (Auto) 0.4 Absolute Neuts (auto) 9.6 H Absolute Lymphs (auto) 0.73 L Nucleated RBC % 0 Sodium 124 L Potassium 3.6 Chloride 89 L Carbon Dioxide 28.0 Anion Gap 7 BUN 17 Creatinine 1.13 H Estim Creat Clear Calc 38.21 Est GFR (MDRD) Af Amer 62 Est GFR (MDRD) Non-Af 51 L BUN/Creatinine Ratio 15.0 Glucose 138 H Lactic Acid 0.8 Calcium 10.3 H Total Bilirubin 0.50 Direct Bilirubin 0.21 AST 19 ALT 20 Alkaline Phosphatase 89 Total Protein 7.3 Albumin 4.1 Globulin 3.2 Lipase 126 Radiography Diagnostic Testing: Clinical Impression(s) from Imaging Studies Abdomen/Pelvis CT 02/01/23 08:04 IMPRESSION: Incarcerated hernia causing small bowel obstruction 1. Incarcerated small bowel in the right paraumbilical hernia sac causing mild to moderate distention of the small bowel loops proximal to the obstruction. Electronically Signed: Huey Bryant MD at 10:09 EDT , ADDENDUM: 02/01/23 1017 IMPRESSION: Incarcerated hernia causing small bowel obstruction 1. Incarcerated small bowel in the right paraumbilical hernia sac causing mild to moderate distention of the small bowel loops proximal to the obstruction. N.B. : The above Results were Read Back by Huey Bryant MD to Ricco Nazario MD, and understanding confirmed on 02/01/2023 10:10:57 (ET). Electronically Signed: Huey Bryant MD at 10:09 EDT Reading Location ID and State: [id number] , Service support , ADDENDUM: 02/01/23 1127 IMPRESSION: High-grade small bowel ileus. No definite lead point or obstruction of the small bowel seen. If a follow-up study is required small bowel follow-through or study with oral contrast is recommended. Electronically Signed: Huey Bryant MD at 11:20 EDT , N.B. : The above Results were Read Back by Huey Bryant MD to Ricco Nazario MD, and understanding confirmed on 02/01/2023 10:10:57 (ET). Discharge Plan Triage Chief Complaint: Nausea/Vomiting ED Provider: Ricco Nazario Dx/Rx/DC Orders Clinical Impression: Ileus, Ventral hernia, Acute hyponatremia, Acute dehydration Prescriptions: No Action multivitamin Tablet 1 tab PO DAILY omeprazole 40 mg capsule,delayed release(DR/EC) 40 mg PO BID Qty: 60 0RF Rx Instructions: Continue two times a day for four weeks then once a day indapamide 2.5 MG tablet 5 mg PO DAILY meloxicam 15 MG tablet 15 mg PO DAILY potassium chloride [Klor-Con M20] 20 MEQ tablet 20 meq PO DAILY diltiazem HCl 300 MG capsule 300 mg PO DAILY aspirin 81 MG tablet,chewable 81 mg PO DAILY@0800 calcium 600 mg Capsule 600 mg PO DAILY cholecalciferol (vitamin D3) [Vitamin D3] 125 mcg (5,000 unit) Tablet 125 mcg PO DAILY Probiotic 3 billion cell Capsule 3,000 mmu cells PO DAILY oxycodone 5 mg tablet 5 mg PO Q6H PRN (Reason: pain) 3 Days Qty: 11 0RF sucralfate [Carafate] 1 gram tablet 1 g PO BID Qty: 60 0RF ondansetron 4 mg tablet,disintegrating 4 mg PO Q6H PRN (Reason: nausea and vomiting) Qty: 15 0RF Primary Care Provider: Ashok Hernandez Referrals: Ashok Hernandez MD [Primary Care Provider] -
[2023-02-01 10:51] LABS: Lactic Acid 0.8 mmol/L (0.4-1.9)
--- NOTE | 2023-02-01 12:13 | CON.PCM.SX_ITS ---
Assessment & Plan Assessment/Plan (1) Ileus: PLAN: Patient's original CT scan was read as possible obstruction. The patient has 2 large ventral hernias which she was recommended to have hernia surgery at a tertiary care center 1 year ago. She has not been able to find a surgeon since then. The CT scan was read as possible obstruction but when I went over the CT scan with the radiologist he agreed that the part of bowel that was in the right hernia was actually colon and it was the same caliber entering and exiting. There is no transition point in the small bowel. The small bowel does look diffusely dilated. There is copious stool throughout the colon. She had a bowel movement today and yesterday. All of these things do not point to bowel obstruction. When I performed physical exam her abdomen is soft and nondistended and I was able to easily palpate both hernias with no incarcerated contents. I believe the patient likely has an ileus, unsure as to the etiology. The patient denies productive cough or burning with urination. UA is pending. I would recommend placing an NG tube as the patient is still nauseated. Recommend IV fluids and repeat x-ray in the morning. Continue to investigate cause of ileus. At this time I do not believe there is any surgical indication and I do not believe it is a mechanical obstruction. Will continue to follow. Drew Trinh MD Pager: [facility] [address] [place] [address], [address] [place] [address] Office: HPI Consult Data Date of Consult: 02/01/23 HPI Narrative HPI Narrative: BHUPENDRA DOSHI, is a 67 F who presents with generalized plaints that started yesterday at around 10 PM. She reports that she started feeling like she was having rigors and chills and she had this cold sweats began. After that became nauseous and threw up around midnight. She says she had a normal bowel movement yesterday and a small bowel movement this morning. She denies any focal abdominal pain and reports that it is generalized and mild to moderate. She is still nauseous. She denies any cough or objective fever or burning with urination. [facility] Medical History Acute postoperative abdominal pain Arthritis Back pain Dehydration Diabetes Fatty liver Heartburn History of diverticulitis History of edema History of stress test Hypertension Low iron Nausea & vomiting Non-smoker Shortness of breath on exertion Symptomatic cholelithiasis Umbilical hernia Vertigo Wears glasses Wears partial dentures Home Medications aspirin 81 mg chewable tablet 81 mg PO DAILY@0800 02/23/15 [History Last Taken 01/22/22] diltiazem HCl 300 mg capsule,extended release 24 hr 300 mg PO DAILY 02/23/15 [History Last Taken 01/23/22 05:00] indapamide 2.5 mg tablet 5 mg PO DAILY 02/23/15 [History Last Taken 01/23/22 05:00] meloxicam 15 mg tablet 15 mg PO DAILY 02/23/15 [History Last Taken Unknown] potassium chloride 20 mEq tablet,extended release(part/cryst) (Klor-Con M) 20 meq PO DAILY 02/23/15 [History Last Taken Unknown] calcium 600 mg capsule 600 mg PO DAILY 01/14/22 [History Last Taken Unknown] cholecalciferol (vitamin D3) 125 mcg (5,000 unit) tablet (Vitamin D3) 125 mcg PO DAILY 01/14/22 [History Last Taken Unknown] multivitamin 1 tab PO DAILY 01/19/22 [History Last Taken Unknown] lactobacillus combination no.4 3 billion cell capsule (Probiotic) 3,000 mmu cells PO DAILY 01/20/22 [History Last Taken Unknown] oxycodone 5 mg tablet 5 mg PO Q6H PRN pain 3 days #11 tabs 01/23/22 [Rx Last Taken Unknown] ondansetron 4 mg disintegrating tablet 4 mg PO Q6H PRN nausea and vomiting #15 tabs 12/20/22 [Rx Last Taken Unknown] sucralfate 1 gram tablet (Carafate) 1 g PO BID #60 tabs 12/20/22 [Rx Last Taken Unknown] omeprazole 40 mg capsule,delayed release 40 mg PO BID #60 caps 01/12/23 [Rx Last Taken Unknown] Allergy/AdvReac Type Severity Reaction Status Date / Time Beta-Blockers Allergy Chest Verified 02/01/23 07:46 (Beta-Adrenergic Bloc tightness Family History Mother Cancer Melanoma Father Heart disease Surgical History H/O partial resection of colon History of back surgery History of carpal tunnel release of both wrists History of hysterectomy History of laparoscopic cholecystectomy History of repair of left rotator cuff History of right shoulder replacement Hx of colonoscopy Social History Smoking Status: Never smoker alcohol intake: never substance use type: does not use ROS Constitutional Constitutional: Reports anorexia and chills Eyes Eyes: Denies blurry vision ENT HEENT: Denies abnormal hearing Cardiovascular Cardiovascular: Denies chest pain Respiratory/Chest Respiratory/Chest: Denies cough or dyspnea Gastrointestinal Gastrointestinal: Reports abdominal pain, nausea and vomiting; Denies bloating, change in bowel habits, constipation or rectal bleeding Genitourinary Genitourinary: Denies change in urinary stream Musculoskeletal Musculoskeletal: Denies abnormal gait Integumentary Integumentary: Denies jaundice Neurologic Neurologic: Denies abnormal gait Physical Exam Const alert and oriented x3 HEENT normocephalic Eyes PERRL Resp normal respiratory effort Cardio Rate: regular rate Rhythm: regular rhythm GI soft to palpation and non-tender Extremity normal to inspection Lab / Micro Data Result Diagrams: 02/01/23 08:01 02/01/23 08:01 Labs: Laboratory Results - last 24 hr 02/01/23 08:01: WBC 10.7, RBC 5.58 H, Hgb 15.2 H, Hct 44.3, MCV 79.4 L, MCH 27.2, MCHC 34.3, RDW Std Deviation 35.8, RDW Coeff of [place] 12.7, Plt Count 349, MPV 9.7, Immature Gran % (Auto) 0.300, Neut % (Auto) 89.6 H, Lymph % (Auto) 6.8 L, [place] % (Auto) 2.5, Eos % (Auto) 0.4, Baso % (Auto) 0.4, Absolute Neuts (auto) 9.6 H, Absolute Lymphs (auto) 0.73 L, Nucleated RBC % 0 02/01/23 08:01: Sodium 124 L, Potassium 3.6, Chloride 89 L, Carbon Dioxide 28.0, Anion Gap 7, BUN 17, Creatinine 1.13 H, Estim Creat Clear Calc 38.21, Est GFR (MDRD) Af Amer 62, Est GFR (MDRD) Non-Af 51 L, BUN/Creatinine Ratio 15.0, Glucose 138 H, Calcium 10.3 H, Total Bilirubin 0.50, Direct Bilirubin 0.21, AST 19, ALT 20, Alkaline Phosphatase 89, Total Protein 7.3, Albumin 4.1, Globulin 3.2, Lipase 126 02/01/23 10:20: Lactic Acid 0.8 Radiology Impression Abdomen/Pelvis CT 02/01/23 08:04 IMPRESSION: Incarcerated hernia causing small bowel obstruction 1. Incarcerated small bowel in the right paraumbilical hernia sac causing mild to moderate distention of the small bowel loops proximal to the obstruction. Electronically Signed: Huey Bryant MD at 10:09 EDT Reading Location ID and State: [address] [place] [address] , Service support , ADDENDUM: 02/01/23 1017 IMPRESSION: Incarcerated hernia causing small bowel obstruction 1. Incarcerated small bowel in the right paraumbilical hernia sac causing mild to moderate distention of the small bowel loops proximal to the obstruction. N.B. : The above Results were Read Back by Huey Bryant MD to Ricco Nazario MD, and understanding confirmed on 02/01/2023 10:10:57 (ET). Electronically Signed: Huey Bryant MD at 10:09 EDT , ADDENDUM: 02/01/23 1127 IMPRESSION: High-grade small bowel ileus. No definite lead point or obstruction of the small bowel seen. If a follow-up study is required small bowel follow-through or study with oral contrast is recommended. Electronically Signed: Huey Bryant MD at 11:20 EDT , N.B. : The above Results were Read Back by Huey Bryant MD to Ricco Nazario MD, and understanding confirmed on 02/01/2023 10:10:57 (ET).
--- NOTE | 2023-02-01 12:15 | RAD_ITS ---
STUDY: X-RAY - ABDOMEN/PELVIS REASON FOR EXAM: Female, 67 years old. NG Insertion TECHNIQUE: Single AP view of the abdomen / pelvis. COMPARISON: Abdominal x-ray dated December 20, 2022 FINDINGS: Normal visualized lung bases. There is an unremarkable bowel gas pattern. The new feeding tube is at the GE junction and should be slightly advanced down into the stomach. Normal soft tissue structures. There are diffuse degenerative changes of the visualized lumbar spine. Stable spinal hardware and chronic changes as well as right shoulder prosthesis. RAD/Abdomen Single View (Portable) IMPRESSION: 1. The tip of the feeding tube is at the GE junction and should be advanced down into the stomach Electronically Signed: Huey Bryant MD at 13:06 EDT ,
--- NOTE | 2023-02-01 12:18 | RAD_ITS ---
STUDY: X-RAY - ABDOMEN/PELVIS REASON FOR EXAM: Female, 67 years old. NG TUBE PLACEMENT #2 TECHNIQUE: Single AP view of the abdomen / pelvis. COMPARISON: February 01, 2023 at 1216 PM FINDINGS: Follow-up study at 12:17 PM shows successful advancement of the tip of the NG tube into the body of the stomach. Normal visualized lung bases. There is an unremarkable bowel gas pattern. The remaining findings are stable. RAD/Abdomen Single View (Portable) IMPRESSION: Follow-up study at 12:17 PM shows successful advancement of the tip of the NG tube into the body of the stomach Electronically Signed: Huey Bryant MD at 13:07 EDT ,
[2023-02-01 12:26] VITALS: BP 157/73; PULSE 89; RESP 20; TEMP 37.1; O2SAT 96
[2023-02-01] MEDS: 0.9% Normal Saline 1,000 ML 75 ML IV (13:31)
[2023-02-01 13:38] LABS: Bacteria 0 SEEN /hpf (None Seen); Mucous, Urine 0 SEEN /hpf (<or=2+); Red Blood Cells-Urine 0 SEEN /hpf (0-5); Squamous Epithelial Cells - UA 0 SEEN /hpf (5-10); White Blood Cells 0 SEEN /hpf (0-5)
[2023-02-01 13:50] LABS: Color, Urine Yellow (Yellow); Glucose, Dipstick Normal (Normal); Ketone-Dipstick 15 mg/dl (Negative); Leukocyte Esterase-Dipstick Negative /ul (Negative); Nitrite-Dipstick Negative (Negative); Occult Blood-Urine Negative /ul (Negative); Protein-Dipstick 15 mg/dl (Negative); Urine Bilirubin Dipstick Negative (Negative); Urine Clarity Clear (Clear); Urine Urobilinogen Normal (Normal)
[2023-02-01 13:59] VITALS: BMI 29.3
[2023-02-01 14:12] VITALS: BP 139/61; PULSE 73; RESP 18; TEMP 37.1; O2SAT 98
[2023-02-01] MEDS: 0.9% Saline Lock 10 ML Syringe IV (14:14)
[2023-02-01] MEDS: Ketorolac 30 MG/ML Syringe IV (17:07)
[2023-02-01] MEDS: 0.9% Normal Saline 1,000 ML 150 ML IV (19:50)
[2023-02-01 20:41] VITALS: BP 136/61; PULSE 71; RESP 16; TEMP 37; O2SAT 100
--- NOTE | 2023-02-01 21:00 | PCM.HP.STD ---
[facility] - General General Date of Admission: 02/01/23 Date of Service: 02/01/23 Chief Complaint: Nausea and vomiting, abdominal distention [facility] Narrative BHUPENDRA DOSHI, is a 67 F who presents to the emergency room today at [facility] for evaluation of persistent vomiting which started approximately midnight this morning and persisted for several hours. Patient also had abdominal bloating, she denied any diarrhea, she denied any fevers or chills. Work-up in the emergency room included a CBC which showed a normal white blood cell count, hemoglobin was 15.2, chemistry panel was remarkable for sodium of 124, chloride of 89, creatinine of 1.13. Patient's calcium was slightly high at 10.3. Patient's urinalysis was unremarkable. CT of the abdomen pelvis indicated a bowel loop entering the right periumbilical hernia, there was not an actual small bowel obstruction, there was felt to be a high-grade ileus with fluid and fecal matter within the loop of bowel. According to general surgery (Dr. Trinh), the patient has 2 large ventral hernias which she was recommended to have hernia surgery at a tertiary care center approximately a year ago, according to the patient, she has not been able to find a surgeon since that time. Dr. Trinh stated that the part of the bowel that was in the patient's right hernia was actually a colon segment and it was the same caliber entering and exiting the area, there is no transition point in the small bowel, small bowel did look diffusely dilated. There was a copious amount of stool throughout the colon. Patient was admitted to [place] [address] for high-grade ileus, general surgery will participate in her care, she had an NG tube placed in the emergency room. At the time of my examination at approximately 830 tonight, patient was having multiple bowel movements and appeared to be comfortable. [facility] Medical History Acute postoperative abdominal pain Arthritis Back pain Dehydration Diabetes Fatty liver Heartburn History of diverticulitis History of edema History of stress test Hypertension Low iron Nausea & vomiting Non-smoker Shortness of breath on exertion Symptomatic cholelithiasis Umbilical hernia Vertigo Wears glasses Wears partial dentures Home Medications aspirin 81 mg chewable tablet 81 mg PO DAILY@0800 Check with primary doctor 02/23/15 [History Last Taken 01/31/23] diltiazem HCl 300 mg capsule,extended release 24 hr 300 mg PO DAILY Check with primary doctor 02/23/15 [History Last Taken 01/31/23] indapamide 2.5 mg tablet 5 mg PO DAILY Check with primary doctor 02/23/15 [History Last Taken 01/31/23] meloxicam 15 mg tablet 15 mg PO DAILY Check with primary doctor 02/23/15 [History Last Taken 01/31/23] potassium chloride 20 mEq tablet,extended release(part/cryst) (Klor-Con M) 20 meq PO DAILY Check with primary doctor 02/23/15 [History Last Taken 01/31/23] calcium 600 mg capsule 600 mg PO DAILY Check with primary doctor 01/14/22 [History Last Taken 01/31/23] cholecalciferol (vitamin D3) 125 mcg (5,000 unit) tablet (Vitamin D3) 125 mcg PO DAILY Check with primary doctor 01/14/22 [History Last Taken 01/31/23] multivitamin 1 tab PO DAILY Check with primary doctor 01/19/22 [History Last Taken 01/31/23] omeprazole 40 mg capsule,delayed release 40 mg PO BID #60 caps 01/12/23 [Rx Last Taken 01/31/23] Allergy/AdvReac Type Severity Reaction Status Date / Time Beta-Blockers Allergy Chest Verified 02/01/23 07:46 (Beta-Adrenergic Bloc tightness morphine AdvReac Nausea Verified 02/01/23 17:01 Family History Mother Cancer Melanoma Father Heart disease Surgical History H/O partial resection of colon History of back surgery History of carpal tunnel release of both wrists History of hysterectomy History of laparoscopic cholecystectomy History of repair of left rotator cuff History of right shoulder replacement Hx of colonoscopy Social History Smoking Status: Never smoker alcohol intake: never substance use type: does not use ROS Constitutional Constitutional: Denies anorexia, change in weight, chills, fatigue, fever(s), night sweats or weakness Eyes Eyes: Denies blurry vision, change in vision, discharge from eye(s) or eye pain Cardiovascular Cardiovascular: Denies chest pain, claudication, dyspnea on exertion, edema, lightheadedness or palpitations Respiratory/Chest Respiratory/Chest: Denies cough, excessive phlegm production, hemoptysis, productive cough, shortness of breath at rest or shortness of breath with exertion Gastrointestinal Gastrointestinal: Reports abdominal pain, nausea and vomiting; Denies constipation, diarrhea, hematemesis, hematochezia or melena Genitourinary Genitourinary: Denies difficulty urinating, dysuria, hematuria, urinary frequency, urinary hesitancy, urinary incontinence or urinary urgency Musculoskeletal Musculoskeletal: Denies back pain, joint pain, joint stiffness, joint swelling, myalgias or neck pain Neurologic Neurologic: Denies abnormal gait, abnormal speech, confusion, dizziness, focal weakness, headache(s), loss of vision, numbness, other visual disturbances, paresthesias, syncope or tingling Psychiatric Psychiatric: Denies anxiety, cognitive impairment, depression, irritability, mood swings or suicidal ideation Endocrine Endocrinology: Denies change in body appearance, cold intolerance, excessive sweating, heat intolerance, polydipsia or polyuria Hematologic/Lymphatic Hematologic/Lymphatic: Denies none, anemia, easy bleeding, easy bruising or lymphadenopathy Allergic/Immunologic Allergic/Immunologic: Denies rhinitis, urticaria, eczemia or asthma Vital Signs Vital Signs Vital Signs: 02/01/23 07:47 02/01/23 12:26 02/01/23 14:12 Temperature 97.8 F 98.8 F 98.8 F Temperature Source Temporal Temporal Temporal Pulse Rate 82 89 73 Respiratory Rate 16 20 H 18 Respiratory Effort Respiratory Depth Respiratory Pattern Blood Pressure 176/76 H 157/73 H 139/61 H Blood Pressure Mean 109 101 87 Blood Pressure Source Monitor Blood Pressure Position Left Lateral Blood Pressure Location Right Arm Pulse Ox 99 96 98 Oxygen Delivery Method Room Air Room Air Room Air 02/01/23 20:24 02/01/23 20:41 Temperature 98.6 F Temperature Source Oral Pulse Rate 71 Respiratory Rate 16 Respiratory Effort Normal Respiratory Depth Normal Respiratory Pattern Normal Blood Pressure 136/61 H Blood Pressure Mean 86 Blood Pressure Source Monitor Blood Pressure Position Semi-Fowlers Blood Pressure Location Left Arm Pulse Ox 100 Oxygen Delivery Method Room Air Room Air Weight Weight: 72.847 kg Body Mass Index (BMI) 29.3 Physical Exam Const alert, oriented x3, no apparent distress, average body habitus and healthy appearing General Appearance: cooperative, well kempt and well developed Orientation / Consciousness: awake, oriented to person, oriented to place and oriented to time HEENT normocephalic, head/scalp atraumatic, hearing grossly normal bilaterally and moist oral mucous membranes Eyes PERRL, EOMs intact bilaterally and conjunctivae normal Neck supple, no JVD, thyroid normal and no carotid bruits General: trachea midline Resp normal respiratory effort, no retractions, no use of accessory muscles and clear to auscultation bilaterally Auscultation: Negative for rales, rhonchi or wheezes Cardio regular rate, regular rhythm, no murmurs, no rub and no gallops GI normal to inspection, nondistended, normoactive bowel sounds and non-tender GI Narrative: Patient has mild abdominal distention Extremity no clubbing, cyanosis or edema Skin no rashes or lesions noted General Skin Exam: no breakdown Neuro oriented x3, CN's II-XII intact bilaterally, moves all extremities, no focal motor deficits and no sensory deficits noted Sensorium / Orientation: awake, alert, oriented to person, oriented to place and oriented to time Speech: speech normal Psych affect normal Results Lab / Micro Data Result Diagrams: 02/02/23 06:20 02/02/23 06:20 Labs: Laboratory Results - last 24 hr 02/01/23 08:01: WBC 10.7, RBC 5.58 H, Hgb 15.2 H, Hct 44.3, MCV 79.4 L, MCH 27.2, MCHC 34.3, RDW Std Deviation 35.8, RDW Coeff of Magno 12.7, Plt Count 349, MPV 9.7, Immature Gran % (Auto) 0.300, Neut % (Auto) 89.6 H, Lymph % (Auto) 6.8 L, [place] % (Auto) 2.5, Eos % (Auto) 0.4, Baso % (Auto) 0.4, Absolute Neuts (auto) 9.6 H, Absolute Lymphs (auto) 0.73 L, Nucleated RBC % 0 02/01/23 08:01: Sodium 124 L, Potassium 3.6, Chloride 89 L, Carbon Dioxide 28.0, Anion Gap 7, BUN 17, Creatinine 1.13 H, Estim Creat Clear Calc 38.21, Est GFR (MDRD) Af Amer 62, Est GFR (MDRD) Non-Af 51 L, BUN/Creatinine Ratio 15.0, Glucose 138 H, Calcium 10.3 H, Total Bilirubin 0.50, Direct Bilirubin 0.21, AST 19, ALT 20, Alkaline Phosphatase 89, Total Protein 7.3, Albumin 4.1, Globulin 3.2, Lipase 126 02/01/23 10:20: Lactic Acid 0.8 02/01/23 13:30: Urine Color Yellow, Urine Clarity Clear, Urine pH 7.0, Ur Specific [place] 1.010, Urine Protein 15 H, Urine Glucose (UA) Normal, Urine Ketones 15 H, Urine Occult Blood Negative, Urine Nitrite Negative, Urine Bilirubin Negative, Urine Urobilinogen Normal, Ur Leukocyte Esterase Negative, Urine RBC 0 SEEN, Urine WBC 0 SEEN, Ur Squamous Epith Cells 0 SEEN, Urine Bacteria 0 SEEN, Urine Mucus 0 SEEN Radiology Impression Abdomen/Pelvis CT 02/01/23 08:04 IMPRESSION: Incarcerated hernia causing small bowel obstruction 1. Incarcerated small bowel in the right paraumbilical hernia sac causing mild to moderate distention of the small bowel loops proximal to the obstruction. Electronically Signed: Huey Bryant MD at 10:09 EDT , ADDENDUM: 02/01/23 1017 IMPRESSION: Incarcerated hernia causing small bowel obstruction 1. Incarcerated small bowel in the right paraumbilical hernia sac causing mild to moderate distention of the small bowel loops proximal to the obstruction. N.B. : The above Results were Read Back by Huey Bryant MD to Ricco Nazario MD, and understanding confirmed on 02/01/2023 10:10:57 (ET). Electronically Signed: Huey Bryant MD at 10:09 EDT , ADDENDUM: 02/01/23 1127 IMPRESSION: High-grade small bowel ileus. No definite lead point or obstruction of the small bowel seen. If a follow-up study is required small bowel follow-through or study with oral contrast is recommended. Electronically Signed: Huey Bryant MD at 11:20 EDT , N.B. : The above Results were Read Back by Huey Bryant MD to Ricco Nazario MD, and understanding confirmed on 02/01/2023 10:10:57 (ET). KUB X-Ray 02/01/23 12:15 IMPRESSION: 1. The tip of the feeding tube is at the GE junction and should be advanced down into the stomach Electronically Signed: Huey Bryant MD at 13:06 EDT , KUB X-Ray 02/01/23 12:18 IMPRESSION: Follow-up study at 12:17 PM shows successful advancement of the tip of the NG tube into the body of the stomach Electronically Signed: Huey Bryant MD at 13:07 EDT , Assessment & Plan Assessment/Plan (1) Ileus: PLAN: Plan 1. Ileus-patient was admitted to [place] [address], and NG tube had been placed in the emergency room, she will be seen by general surgery, she is currently having bowel movements which is good #2 large ventral hernia-patient states that general surgery told her that she would not be having surgery here for this ventral hernia as she would have to go to a tertiary facility, hopefully she will not have to be transferred during this hospital admission. #3 essential hypertension-patient's medications will have to be held due to her n.p.o. status, her blood pressure will be monitored, may be necessary to give her IV blood pressure medications #4 mild dehydration-patient will be given IV fluids, labs will be monitored Total clinical time spent by myself addressing the patient's medical issues, reviewing all the data, and collaborating with patient's care team: 55 minutes Charges/Coding Visit Charges Inpatient E&M: 08738 Init Hosp L2
[2023-02-01] MEDS: Heparin Injection (Vial) 5,000 UNIT/ML VIAL 5000 UNIT SC (21:40)
[2023-02-02 02:44] VITALS: BP 120/52; PULSE 64; RESP 16; TEMP 36.7; O2SAT 96
[2023-02-02] MEDS: 0.9% Normal Saline 1,000 ML 150 ML IV ×3 (02:45→16:46)
--- NOTE | 2023-02-02 05:55 | RAD_ITS ---
EXAM: XR ABDOMEN, 1 VIEW CLINICAL INDICATION: ileus TECHNIQUE: 2 frontal supine view of the abdomen/pelvis. This report was created using [employer] report generation technology. COMPARISON: Abdominal radiograph of 02/01/2023. FINDINGS: LOWER THORAX: Visualized lung bases are clear. GASTROINTESTINAL TRACT: Small amount of gas and stool scattered within the colon, extending into the rectum. No distended small bowel loops are identified. Stomach is decompressed. ORGANS: Cholecystectomy clips are again noted. No organomegaly. No abnormal calcifications. BONES/JOINTS: Pedicle screws and rods are in place from L4 to L5 with broad midline laminectomy in the lower lumbar region. Surgical clips are projected over the sacrum. Thoracolumbar degenerative disc disease. SOFT TISSUES: No acute pathology. TUBES, LINES AND DEVICES: Nasogastric tube tip in the stomach. RAD/Abdomen Single View (Portable) IMPRESSION: Satisfactory NG tube tube positioning. No acute findings. Bowel gas pattern is normal. No findings of ileus or small bowel obstruction. Electronically Signed: Junior Sena MD at 6:11 EDT ,
[2023-02-02 06:53] LABS: Absolute Lymphocyte Count 0.94 X10^3/uL (0.83-4.51); Absolute Neutrophil Count 2.5 X10^3/uL (2.0-7.7); Basophil# 0.03 X10^3/uL; Basophil% 0.7 % (0-1); Eosinophil# 0.15 X10^3/uL; Eosinophils% 3.7 % (0-5); Hematocrit 35.1 % (37-47); Hemoglobin 11.9 g/dL (12.0-15.0); Lymphocyte # 0.94 X10^3/ul (0.83-4.51); Lymphocyte % 23.1 % (19-41); Mean Corp Hgb Conc 33.9 g/dL (32-36); Mean Corpuscular Hgb 27.5 pg (27.0-32.0); Mean Corpuscular Volume 81.1 fL (81-99); Mean Platelet Vol. 9.5 fl (6.2-12.0); Monocyte# 0.43 X10^3/uL; Monocyte% 10.6 % (0-10); NRBC Flagged by Analyzer 0 % (0-5); Neutrophil # 2.51 X10^3/uL (2.7-7.7); Neutrophil % 61.7 % (47-70); Platelet Count 228 K/mm3 (150-450); RBC Distribution Width CV 12.9 % (11.6-14.6); RBC Distribution Width SD 37.2 fl (35.1-43.9); Red Blood Count 4.33 M/mm3 (4.2-5.4); White Blood Count 4.1 K/mm3 (4.4-11.0)
[2023-02-02 07:21] LABS: Anion Gap 3 (5-15); BUN 18 mg/dL (7-18); BUN/Creat Ratio 19.1 RATIO (10-20); Calcium,Total 8.1 mg/dL (8.5-10.1); Chloride 102 mmol/L (98-107); Creatinine, Serum 0.94 mg/dL (0.55-1.02); EST Glomerular Filtration Rate 63 mL/min (>60); Est Glom Filt Rate - Afr Amer 76 mL/min (>60); Estimated Creatinine Clearance 45.93 ml/min; Glucose 94 mg/dL (74-106); Potassium 3.4 mmol/L (3.5-5.1); Sodium Level 132 mmol/L (136-145)
[2023-02-02 07:41] VITALS: BP 146/69; PULSE 70; RESP 16; TEMP 36.4; O2SAT 99
--- NOTE | 2023-02-02 08:28 | PCM.PN.SRG ---
Subjective Subjective Patient reports she had a loose bowel movement overnight. She is not having any abdominal pain or nausea. Objective Data Objective Data Vital Signs: Vital Signs Temp Pulse Resp BP Pulse Ox O2 Del Method 97.6 F L 70 16 146/69 H 99 Room Air 02/02/23 07:41 02/02/23 07:41 02/02/23 07:41 02/02/23 07:41 02/02/23 07:41 02/02/23 07:41 Oxygen Delivery Method Room Air Weight: 160 lb 9.6 oz Body Mass Index (BMI) 29.3 Intake & Output: Intake and Output for Last 24 Hours 01/31/23 02/01/23 02/02/23 23:59 23:59 23:59 Intake Total 2377.5 / 2427.5 862.5 / 862.5 Output Total 650 / 1050 550 / 550 Balance 1727.5 / 1377.5 312.5 / 312.5 Lab / Micro Data Result Diagrams: 02/02/23 06:20 02/02/23 06:20 Labs: Laboratory Results - last 24 hr 02/01/23 08:01: WBC 10.7, RBC 5.58 H, Hgb 15.2 H, Hct 44.3, MCV 79.4 L, MCH 27.2, MCHC 34.3, RDW Std Deviation 35.8, RDW Coeff of Magno 12.7, Plt Count 349, MPV 9.7, Immature Gran % (Auto) 0.300, Neut % (Auto) 89.6 H, Lymph % (Auto) 6.8 L, [place] % (Auto) 2.5, Eos % (Auto) 0.4, Baso % (Auto) 0.4, Absolute Neuts (auto) 9.6 H, Absolute Lymphs (auto) 0.73 L, Nucleated RBC % 0 02/01/23 08:01: Sodium 124 L, Potassium 3.6, Chloride 89 L, Carbon Dioxide 28.0, Anion Gap 7, BUN 17, Creatinine 1.13 H, Estim Creat Clear Calc 38.21, Est GFR (MDRD) Af Amer 62, Est GFR (MDRD) Non-Af 51 L, BUN/Creatinine Ratio 15.0, Glucose 138 H, Calcium 10.3 H, Total Bilirubin 0.50, Direct Bilirubin 0.21, AST 19, ALT 20, Alkaline Phosphatase 89, Total Protein 7.3, Albumin 4.1, Globulin 3.2, Lipase 126 02/01/23 10:20: Lactic Acid 0.8 02/01/23 13:30: Urine Color Yellow, Urine Clarity Clear, Urine pH 7.0, Ur Specific [place] 1.010, Urine Protein 15 H, Urine Glucose (UA) Normal, Urine Ketones 15 H, Urine Occult Blood Negative, Urine Nitrite Negative, Urine Bilirubin Negative, Urine Urobilinogen Normal, Ur Leukocyte Esterase Negative, Urine RBC 0 SEEN, Urine WBC 0 SEEN, Ur Squamous Epith Cells 0 SEEN, Urine Bacteria 0 SEEN, Urine Mucus 0 SEEN 02/02/23 06:20: WBC 4.1 L, RBC 4.33, Hgb 11.9 L, Hct 35.1 L, MCV 81.1, MCH 27.5, MCHC 33.9, RDW Std Deviation 37.2, RDW Coeff of Magno 12.9, Plt Count 228, MPV 9.5, Immature Gran % (Auto) 0.200, Neut % (Auto) 61.7, Lymph % (Auto) 23.1, [place] % (Auto) 10.6 H, Eos % (Auto) 3.7, Baso % (Auto) 0.7, Absolute Neuts (auto) 2.5, Absolute Lymphs (auto) 0.94, Nucleated RBC % 0 02/02/23 06:20: Sodium 132 L, Potassium 3.4 L, Chloride 102, Carbon Dioxide 27.0, Anion Gap 3 L, BUN 18, Creatinine 0.94, Estim Creat Clear Calc 45.93, Est GFR (MDRD) Af Amer 76, Est GFR (MDRD) Non-Af 63, BUN/Creatinine Ratio 19.1, Glucose 94, Calcium 8.1 L Radiography Diagnostic Testing: Radiology Impression Abdomen/Pelvis CT 02/01/23 08:04 IMPRESSION: Incarcerated hernia causing small bowel obstruction 1. Incarcerated small bowel in the right paraumbilical hernia sac causing mild to moderate distention of the small bowel loops proximal to the obstruction. Electronically Signed: Huey Bryant MD at 10:09 EDT Reading Location ID and State: [facility] / [place] , Service support , ADDENDUM: 02/01/23 1017 IMPRESSION: Incarcerated hernia causing small bowel obstruction 1. Incarcerated small bowel in the right paraumbilical hernia sac causing mild to moderate distention of the small bowel loops proximal to the obstruction. N.B. : The above Results were Read Back by Huey Bryant MD to Ricco Nazario MD, and understanding confirmed on 02/01/2023 10:10:57 (ET). Electronically Signed: Huey Bryant MD at 10:09 EDT Reading Location ID and State: [facility] / [place] , Service support , ADDENDUM: 02/01/23 1127 IMPRESSION: High-grade small bowel ileus. No definite lead point or obstruction of the small bowel seen. If a follow-up study is required small bowel follow-through or study with oral contrast is recommended. Electronically Signed: Huey Bryant MD at 11:20 EDT , N.B. : The above Results were Read Back by Huey Bryant MD to Ricco Nazario MD, and understanding confirmed on 02/01/2023 10:10:57 (ET). KUB X-Ray 02/01/23 12:15 IMPRESSION: 1. The tip of the feeding tube is at the GE junction and should be advanced down into the stomach Electronically Signed: Huey Bryant MD at 13:06 EDT , KUB X-Ray 02/01/23 12:18 IMPRESSION: Follow-up study at 12:17 PM shows successful advancement of the tip of the NG tube into the body of the stomach Electronically Signed: Huey Bryant MD at 13:07 EDT , KUB X-Ray 02/02/23 05:55 IMPRESSION: Satisfactory NG tube tube positioning. No acute findings. Bowel gas pattern is normal. No findings of ileus or small bowel obstruction. Electronically Signed: Junior Sena MD at 6:11 EDT , Physical Exam Narrative Abdomen is soft and nontender. There are no contents in the abdominal wall hernias. Assessment & Plan Assessment/Plan (1) Ileus: PLAN: Patient reports she is not passing flatus but she did have a loose bowel movement overnight. Her NG put out about 550 overnight and it is green. She likely has an ileus that is hopefully resolving. If she starts passing some flatus I will remove the NG tube and start clear liquids. Unsure as to the etiology still. Drew Trinh MD Pager: [facility] [address] [place] [address], [address] [place] [address] Office:
[2023-02-02] MEDS: Ketorolac 30 MG/ML Syringe IV (09:29)
[2023-02-02] MEDS: Potassium Chloride 10mEq/100mL 10 MEQ/100 ML IV.SOLN. 100 MEQ IV BOLUS ×2 (09:33→10:37)
[2023-02-02] MEDS: Heparin Injection (Vial) 5,000 UNIT/ML VIAL 5000 UNIT SC (11:41)
--- NOTE | 2023-02-02 13:33 | CASEMGMT ---
JAVIER MAY Assessment: Face to Face with pt for initial transition planning/care coordination assessment. RN CM introduced self and role at [facility], pt voices understanding and consents to assessment. Pt is A/O x4 and answers all questions appropriately at this time. Pt sitting up in chair in no distress with NG in. Care providers, pharmacy, and demographics verified/updated. Admitting Dx: ileus, dehydration, hyponatremia PCP:Mary Specialists:Friend, GI; appt to be made with Preferred Pharmacy: [facility] [place] Insurance: [employer] [facility] Prescription Benefit: yes LNOK: Juvenal Polanco, Living Arrangements: Pt lives with in a mobile home with 3 steps to enter with a rail. Pt reports she is I in ADL's and denies concerns at home. Transportation: Pt drives self and denies concerns with transportation. DME/HHC/SNF: Pt has a FWW but does not use. Pt denies hx of HHC or SNF stays. Pt states no concerns with going home at time of dc. Pt states no further concerns/needs. CM to follow. Advised pt to ask CM if any further question/concerns/needs arise, voices understanding. Pt Goal: Home Plan: Home
[2023-02-02 17:06] VITALS: BP 161/65; PULSE 78; RESP 18; TEMP 36.7; O2SAT 98
[2023-02-02 20:06] VITALS: BP 126/72; PULSE 75; RESP 16; TEMP 36.8; O2SAT 98
--- NOTE | 2023-02-02 20:28 | PCM.PN.HOSP ---
Reason for Visit Reason for Visit: Diagnoses Ileus, unspecified (02/01/23) Subjective Subjective Patient was seen and examined today, I talked with general surgery about her care, she has passed gas today and surgery gave permission for her to have the NG removed which I removed this afternoon. I also made her an appointment with a Dr. Larry in [place] for follow-up regarding her ventral hernia. Objective Data Objective Data Vital Signs: Vital Signs Temp Pulse Resp BP Pulse Ox O2 Del Method 98.3 F 75 16 126/72 H 98 Room Air 02/02/23 20:06 02/02/23 20:06 02/02/23 20:06 02/02/23 20:06 02/02/23 20:06 02/02/23 20:06 Oxygen Delivery Method Room Air Weight: 72.847 kg Body Mass Index (BMI) 29.3 Intake & Output: Intake and Output for Last 24 Hours 01/31/23 02/01/23 02/02/23 23:59 23:59 23:59 Intake Total 2377.5 / 2427.5 3469.75 / 3469.75 Output Total 650 / 1050 850 / 850 Balance 1727.5 / 1377.5 2619.75 / 2619.75 Lab / Micro Data Result Diagrams: 02/02/23 06:20 02/02/23 06:20 Labs: Laboratory Results - last 24 hr 02/02/23 06:20: WBC 4.1 L, RBC 4.33, Hgb 11.9 L, Hct 35.1 L, MCV 81.1, MCH 27.5, MCHC 33.9, RDW Std Deviation 37.2, RDW Coeff of Magno 12.9, Plt Count 228, MPV 9.5, Immature Gran % (Auto) 0.200, Neut % (Auto) 61.7, Lymph % (Auto) 23.1, [place] % (Auto) 10.6 H, Eos % (Auto) 3.7, Baso % (Auto) 0.7, Absolute Neuts (auto) 2.5, Absolute Lymphs (auto) 0.94, Nucleated RBC % 0 02/02/23 06:20: Sodium 132 L, Potassium 3.4 L, Chloride 102, Carbon Dioxide 27.0, Anion Gap 3 L, BUN 18, Creatinine 0.94, Estim Creat Clear Calc 45.93, Est GFR (MDRD) Af Amer 76, Est GFR (MDRD) Non-Af 63, BUN/Creatinine Ratio 19.1, Glucose 94, Calcium 8.1 L Radiography Diagnostic Testing: Radiology Impression KUB X-Ray 02/02/23 05:55 IMPRESSION: Satisfactory NG tube tube positioning. No acute findings. Bowel gas pattern is normal. No findings of ileus or small bowel obstruction. Electronically Signed: Junior Sena MD at 6:11 EDT , Physical Exam Const alert, oriented x3, no apparent distress and healthy appearing General Appearance: cooperative, well kempt and well developed Orientation / Consciousness: awake, oriented to person, oriented to place and oriented to time HEENT normocephalic and moist oral mucous membranes Eyes PERRL, EOMs intact bilaterally and conjunctivae normal Neck supple, no JVD, thyroid normal and no carotid bruits General: trachea midline Resp normal respiratory effort and clear to auscultation bilaterally Auscultation: Negative for rales, rhonchi or wheezes Cardio regular rate, regular rhythm, no murmurs, no rub and no gallops GI normal to inspection, nondistended, normoactive bowel sounds, soft to palpation, non-tender and non-distended Extremity no clubbing, cyanosis or edema Skin no rashes or lesions noted General Skin Exam: no breakdown Neuro oriented x3, CN's II-XII intact bilaterally, no focal motor deficits and no sensory deficits noted Sensorium / Orientation: awake and alert Speech: speech normal Psych affect normal Assessment & Plan Assessment/Plan (1) Ileus: PLAN: Plan 1. Ileus-patient had her NG tube removed, she is improving #2 large ventral hernia-patient states that general surgery told her that she would not be having surgery here for this ventral hernia as she would have to go to a tertiary facility, hopefully she will not have to be transferred during this hospital admission. #3 essential hypertension-patient's medications will have to be held due to her n.p.o. status, her blood pressure will be monitored, may be necessary to give her IV blood pressure medications #4 mild dehydration-patient will be given IV fluids, labs will be monitored Total clinical time spent by myself addressing the patient's medical issues, reviewing all the data, and collaborating with patient's care team: 36 minutes Charges/Coding Visit Charges Inpatient E&M: 12432 Subs Hosp L2
[2023-02-03] MEDS: 0.9% Normal Saline 1,000 ML 75 ML IV (04:07)
[2023-02-03 04:11] VITALS: BP 150/76; PULSE 65; RESP 16; TEMP 36.5; O2SAT 97
[2023-02-03 09:41] VITALS: BP 155/64; PULSE 67; RESP 16; TEMP 36.5; O2SAT 99
[2023-02-03] MEDS: Heparin Injection (Vial) 5,000 UNIT/ML VIAL 5000 UNIT SC (09:52)
--- NOTE | 2023-02-03 11:53 | PCM.DC ---
Discharge Instructions Diet Discharge Diet: No restrictions Activity Discharge Activity: Return to Normal Activity Weight Bearing Status: Full weight bearing Follow Up Care Test Results: Test results from this visit will be discussed in further detail at your follow-up appointment, if applicable. Discharge Plan Admission Admit Date/Time: 02/01/23 11:57 Primary Reason for Your Visit: Ileus Attending Provider: Adolph Arnett Primary Care Provider: Ashok Hernandez Consulting Providers: Drew Trinh Instructions Additional Instructions / Restrictions: Take Miralax 17 grams daily Follow up with Dr. Larry as scheduled Discharge Orders/Prescriptions Prescriptions: Continued multivitamin Tablet 1 tab PO DAILY omeprazole 40 mg capsule,delayed release(DR/EC) 40 mg PO BID Qty: 60 0RF Rx Instructions: Continue two times a day for four weeks then once a day indapamide 2.5 MG tablet 5 mg PO DAILY meloxicam 15 MG tablet 15 mg PO DAILY potassium chloride [Klor-Con M20] 20 MEQ tablet 20 meq PO DAILY diltiazem HCl 300 MG capsule 300 mg PO DAILY aspirin 81 MG tablet,chewable 81 mg PO DAILY@0800 calcium 600 mg Capsule 600 mg PO DAILY cholecalciferol (vitamin D3) [Vitamin D3] 125 mcg (5,000 unit) Tablet 125 mcg PO DAILY Referrals / Follow Up: Ashok Hernandez MD [Primary Care Provider] - Lex Larry MD [Non-Staff] - 02/23/23 10:00 am ([phone] Address: [address] [place] [address]) Disposition Disposition (needs filled in before D/C Order can be placed): Home, Self Care
--- NOTE | 2023-02-03 11:58 | DS.PCM_ITS ---
Providers Date of Admission: 02/01/23 Date of Discharge: 02/03/23 Primary Care Physician: Dr. Ashok Hernandez MD Consultations 02/01/23 13:48 Consult: General Surgery Routine Consulting Provider: Drew Trinh Reason for Consult: Ileus EMERGENT Consult: No MD Notified: Yes Date Notified: 02/01/23 Time Notified: 12:00 Method of Notification: Verbal Reason For Visit: ILEUS, DEHYDRATION, HYPONATREMIA Diagnosis Discharge Diagnosis (1) Ileus: Status: Acute Code(s): K56.7 - Ileus, unspecified Plan 1. Ileus-patient was admitted to [place] [address], and NG tube had been placed in the emergency room, she will be seen by general surgery, she is currently having bowel movements which is good #2 large ventral hernia-patient states that general surgery told her that she would not be having surgery here for this ventral hernia as she would have to go to a tertiary facility, hopefully she will not have to be transferred during this hospital admission. #3 essential hypertension-patient's medications will have to be held due to her n.p.o. status, her blood pressure will be monitored, may be necessary to give her IV blood pressure medications #4 mild dehydration-patient will be given IV fluids, labs will be monitored Total clinical time spent by myself addressing the patient's medical issues, reviewing all the data, and collaborating with patient's care team: 55 minutes Medications at Discharge Home Medications aspirin 81 mg chewable tablet 81 mg PO DAILY@0800 Check with primary doctor 02/23/15 diltiazem HCl 300 mg capsule,extended release 24 hr 300 mg PO DAILY Check with primary doctor 02/23/15 indapamide 2.5 mg tablet 5 mg PO DAILY Check with primary doctor 02/23/15 meloxicam 15 mg tablet 15 mg PO DAILY Check with primary doctor 02/23/15 potassium chloride 20 mEq tablet,extended release(part/cryst) (Klor-Con M) 20 meq PO DAILY Check with primary doctor 02/23/15 calcium 600 mg capsule 600 mg PO DAILY Check with primary doctor 01/14/22 cholecalciferol (vitamin D3) 125 mcg (5,000 unit) tablet (Vitamin D3) 125 mcg PO DAILY Check with primary doctor 01/14/22 multivitamin 1 tab PO DAILY Check with primary doctor 01/19/22 omeprazole 40 mg capsule,delayed release 40 mg PO BID #60 caps 01/12/23 Hospital Course Operations None Procedures None Summary of Care Provided Minutes Spent on Discharge: 32 Hospital Course: This 67-year-old white female was seen in the emergency room at [facility] [place] with a chief complaint of abdominal pain, bloating, nausea, and vomiting. Work-up in the emergency room initially indicated the patient might have a small bowel obstruction but then it was determined that the patient actually had an ileus with a large ventral hernia, patient knew she had a ventral hernia and she was told to make arrangements to see a physician at a tertiary center for repair of the hernia but she had not done so yet. Patient was admitted to [place] [address], she was seen in consultation by general surgery and had an NG tube during her hospitalization, she did well during her hospitalization and did not require surgical intervention. Patient was given IV fluids for dehydration. On 02/03/2023, patient was seen and examined: On examination she appeared in good health and spirits, she does not appear to be in any distress. Vital signs as documented. Skin warm and dry and without overt rashes. Neck without JVD, thyroid appears normal, trachea is midline, neck is supple. Lungs clear, normal air movement was noted. Heart exam notable for regular rhythm, normal sounds and absence of murmurs, rubs or gallops. Abdomen unremarkable and without evidence of organomegaly, masses, or abdominal aortic enlargement, bowel sounds are present in all 4 quadrants, no abdominal te nderness was noted. Extremities nonedematous, no cyanosis was noted, no clubbing was noted. Neuro: Cranial nerves II through XII are grossly intact, no focal motor deficits were noted, sensation to light touch and pinprick is intact, motor exam 5/5 throughout. Psych: Patient is alert and oriented x3, she does not appear anxious or depressed, she does not appear agitated. Patient appears stable for discharge home on 02/03/2023. Arrangements (an appointment) were made for the patient to see a Dr. Larry in [facility] for evaluation of her large ventral hernia and possible repair. Weight / BMI Weight Weight: 72.847 kg Body Mass Index (BMI) 29.3 ABG / Lab / Microbiology Data Result Diagrams: 02/02/23 06:20 02/02/23 06:20 D/C Instructions Discharge Diet: No restrictions Weight Bearing Status: Full weight bearing Meaningful Use Info Meaningful Use Diagnoses (Choose all that apply): None applicable Discharge Plan Admission Admit Date/Time: 02/01/23 11:57 Primary Reason for Your Visit: Ileus Attending Provider: Adolph Arnett Primary Care Provider: Asohk Hernandez Consulting Providers: Drew Trinh Instructions Additional Instructions / Restrictions: Take Miralax 17 grams daily Follow up with Dr. Larry as scheduled Discharge Orders/Prescriptions Prescriptions: Continued multivitamin Tablet 1 tab PO DAILY omeprazole 40 mg capsule,delayed release(DR/EC) 40 mg PO BID Qty: 60 0RF Rx Instructions: Continue two times a day for four weeks then once a day indapamide 2.5 MG tablet 5 mg PO DAILY meloxicam 15 MG tablet 15 mg PO DAILY potassium chloride [Klor-Con M20] 20 MEQ tablet 20 meq PO DAILY diltiazem HCl 300 MG capsule 300 mg PO DAILY aspirin 81 MG tablet,chewable 81 mg PO DAILY@0800 calcium 600 mg Capsule 600 mg PO DAILY cholecalciferol (vitamin D3) [Vitamin D3] 125 mcg (5,000 unit) Tablet 125 mcg PO DAILY Referrals / Follow Up: Ashok Hernandez MD [Primary Care Provider] - Lex Larry MD [Non-Staff] - 02/23/23 10:00 am ([phone] Address: [address] [place] [address]) Disposition Disposition (needs filled in before D/C Order can be placed): Home, Self Care Charges/Coding Visit Charges Inpatient E&M: 28484 Disch Hosp >30min
[2023-02-03 14:38] VITALS: BP 154/56; PULSE 70; RESP 18; TEMP 36.9; O2SAT 98
--- NOTE | 2023-02-03 14:42 | PHA.DC.MR ---
Pharmacy Service has performed discharge medication reconciliation for this patient. The patient's discharge medication list was reviewed for discrepancies and discrepancies were resolved. Home Medications aspirin 81 mg chewable tablet 81 mg PO DAILY@0800 Check with primary doctor 02/23/15 diltiazem HCl 300 mg capsule,extended release 24 hr 300 mg PO DAILY Check with primary doctor 02/23/15 indapamide 2.5 mg tablet 5 mg PO DAILY Check with primary doctor 02/23/15 meloxicam 15 mg tablet 15 mg PO DAILY Check with primary doctor 02/23/15 potassium chloride 20 mEq tablet,extended release(part/cryst) (Klor-Con M) 20 meq PO DAILY Check with primary doctor 02/23/15 calcium 600 mg capsule 600 mg PO DAILY Check with primary doctor 01/14/22 cholecalciferol (vitamin D3) 125 mcg (5,000 unit) tablet (Vitamin D3) 125 mcg PO DAILY Check with primary doctor 01/14/22 multivitamin 1 tab PO DAILY Check with primary doctor 01/19/22 omeprazole 40 mg capsule,delayed release 40 mg PO BID #60 caps 01/12/23
== END 2023-02-03 17:05 | disposition home or self-care (01) | DRG 389 ==
LOC: ED 11:59 → MS3 12:24
PROVIDERS: Admitting Provider Internal Medicine; Emergency Provider Emergency Medicine; PCP Family Medicine; Visit Provider Internal Medicine
DX: K56.7 Ileus, unspecified (principal); E87.1 Hypo-osmolality and hyponatremia; E11.9 Type 2 diabetes mellitus without complications; I10 Essential (primary) hypertension; K43.9 Ventral hernia without obstruction or gangrene; E86.0 Dehydration; Z79.1 Long term (current) use of non-steroidal anti-inflammatories (NSAID); Z79.82 Long term (current) use of aspirin; Z79.899 Other long term (current) drug therapy
CPT/HCPCS: 36415; 74018; 74177; 80048; 80076; 81001; 83605; 83690; 85025; 99284; J7030; J7050; Q9967; A4216; J2405; J3490

== ENCOUNTER 2023-02-26 11:18 | Day surgery (SDC) | payer BC, MEDICARE, SELFPAY ==
[2023-02-26] VITALS (7 sets, daily range): BP systolic 82–142; BP diastolic 37–74; PULSE 52–72; RESP 12–16; TEMP 36.1–36.4; O2SAT 95–98; BMI 27.8
[2023-02-26] MEDS: Lactated Ringers 1,000 ML 15 ML IV (11:57)
--- NOTE | 2023-02-26 12:13 | PCM.HP.BLA ---
History and Physical Date of Admission: 02/26/23 67 F who presents to the office today for PMH ventral hernia (incisional hernia); cholelithiasis s/p cholecystectomy ; HTN; prediabetic; diverticulitis requiring colonic resection (Centeno?s procedure), (diverting ileostomy), (ileostomy reversal) [facility] 01.14.22 with abdominal pain, worsening over last 5 days. Biochemical workup and imaging concerning for gallbladder disease without emergent indication. Discharged with pain medication and instruction to f/u with [facility]. ?US RUQ?hepatic measurement 17.2cm with fatty infiltration; large 1.3cm stone in gallbladder fundus with +Obregon sign [facility] established 01.19.22 Dr. Butcher with biliary colic/symptomatic cholelithiasis following [facility] 01.14.22 ?Laparoscopic cholecystectomy 01.23.22?noting gallbladder inflammation; rectus diastases and large fascial defects containing omentum (will require mesh placement). [facility] 01.26.22 with increased abdominal pain following surgery. No imaging indicated. GI cocktail administered and helpful. Discharged without acute finding with extended release pain medication. ?Xray abd?without acute/chronic symptoms. A OV 01.26.22 with improvement of symptoms following ED evaluation and medications. CT abd/pel 02.10.22?stomach wall thickening, gastritis; small bowel anastomosis; stool throughout colon; atherosclerotic disease; mesenteric lymph nodes; ventral hernia. [facility] 12.20.22 with RUQ abd pain radiating into her back for 1-2weeks. Pain reminiscent of ?gallbladder attack?. Biochemical workup and imaging performed without acute concern and discharged home with?Carafate, omeprazole and Zofran. CT abd/pel?mild cardiomegaly; unremarkable liver; distal wall thickening of stomach, ?ulcer; ventral wall hernias one of which containing transverse colon without obstruction; enlarged mesenteric and retroperitoneal lymph nodes, worsened since previous exam. *[facility] established 01.12.23. With use of Carafate and omeprazole she is not longer having any pain, bloating. Reports she has no GI symptoms at this time to report. No recollection of EGD. Colonoscopy approximal 7years prior which she reports finding anastomosis with an abnormal suture which bleed with manipulation, no further intervention for this. ROS Const Constitutional: No anorexia, fatigue, fever(s), weight change or sleep problems Eyes Eyes: No change in vision ENT ENT: No abnormal hearing, difficulty swallowing, mouth lesions, tongue swelling or throat swelling Resp Respiratory: No cough or shortness of breath Cardio Cardiology: No chest pain at rest, chest pain with exertion, shortness of breath or dyspnea on exertion Gastro GI: No difficulty swallowing Genitourinary-Female: No difficulty urinating or burning urination Musc Musculoskeletal: No joint pain, joint swelling, muscle weakness or decreased muscle mass Skin Skin: No hair loss in leg, yellowing of the eye, itchy eyes, rash, skin ulcer or skin swelling Neuro Neurology: No abnormal hearing, abnormal movements, confusion, unsteady gait/balance or memory loss Psych Psychiatric: No anxiety, No confusion and No memory loss Endo Endocrine: No fatigue or weight change Aller/Imm Allergy/Immunologic: No itchy eyes, throat swelling or tongue swelling Drake/Lymp Hematologic/Lymphatic: No easy bleeding, easy bruising or enlarged lymph nodes Exam Const General: cooperative and comfortable Nutritional Appearance: average body habitus and well nourished [facility] Head: normal to inspection Ears: hearing grossly normal bilaterally Nose: external nose normal Face and sinus: normal facial exam Mouth: oral mucosae normal Throat: posterior oropharynx normal Eyes General: appearance normal, both eyes and all related structures Neck Neck: normal visual inspection Chest Chest palpation & inspection: normal inspection of the chest and normal palpation of entire chest wall Resp Effort & Inspection: normal respiratory effort Auscultation: Bilateral: Clear to Auscultation Cardio Palpation: normal PMI Rate: regular rate Rhythm: regular rhythm GI Inspection: normal to inspection Auscultation: normal bowel sounds Percussion: normal to percussion Palpation: no hepatosplenomegaly Skin General: no rashes or lesions noted Neuro General: patient alert Extrem General: normal to inspection Psych Affect: normal affect Quality Reporting Tobacco Screening ([facility] 138) Smoking Status: Never smoker Assessment and Plan Assessment and Plan (1) Abdominal pain: ?Status:?Acute ?Plan: The differential diagnosis for abdominal pain does include gastritis, peptic ulcer disease, IBS, bile gastritis, gastroparesis.? She will undergo an upper endoscopy to evaluate upper GI tract.? She would likely also need a gastric emptying study.? She was explained alternatives, risk, benefits including outstanding bleeding, infection, sepsis, perforation, need for emergent surgery .? She will have an ASA of 2. (2) Diarrhea: ?Status:?Acute ?Plan: Diarrhea in the setting of cholecystectomy likely secondary to postcholecystectomy diet however been going several years is refractory to lactobacillus probiotic on a daily basis.? The Carafate was helping her cannot stools to become thicker but I do not think she needs that at this time.? We will perform biopsies of the colon to look for signs of microscopic colitis less likely premature bowel disease or any bowel syndrome with diarrhea. ? ? ? Medications: Changed From omeprazole 40 mg? PO BID 60 caps 0RF ? ? To omeprazole ?? Continue two times a day for four weeks then once a day 40 mg? PO BID 60 caps 0RF ? ? I have examined the patient and the H&P has been reviewed. There are no clinical changes since date of exam.
--- NOTE | 2023-02-26 12:30 | IMM_PTH ---
PATIENT: BHUPENDRA DOSHI LOC: [facility] U#:[id number] AGE/SX: 68/F ROOM: RE02/26/[address]: Dr. Herberth Garibay DO : 1955 BED: DIS: 02/26/2023 SPEC #: [id number] RECD: 03/01/23 13:11 STATUS: DAISY REQ #: [id number] BOB: 02/26/23 12:[address]: Herberth Garibay DEPT: IMMUNOHISTOCHEMISTRY RECD BY: Alda Bolaños ENTERED: 03/01/23 13:11 SP TYPE: IMMUNO OTHR DR: Dr. Ashok Hernandez MD Tissues: B - Stomach, NOS Procedures: H Pylori (initial) PHYSICIAN & INSTITUTION [place] [address] SPECIMEN INFORMATION: Tissue Source: B ? Antral ulcer Clinical Info: Abdominal pain, diarrhea Specimen Number: [id number] CPT code: 98658 METHODOLOGY: Deparaffinized sections of prefer/formalin-fixed tissue or PAP/DQ stained slides are incubated with monoclonal/polyclonal antibodies/oligonucleotide probes. Localization is made via biotin free immunoperoxidase method. Appropriate controls are performed and reacted as expected. Results on target cell population are indicated in the following table: RESULTS: ANTIBODY / CLONE RESULT Block B H Pylori (polyclonal) negative These tests were developed and their performance characteristics determined by [facility]. They may not have been cleared or approved by the U.S. Food and Drug Administration. The FDA has determined that such clearance or approval is not necessary. The above immunohistochemical/dualISH markers are ordered and reviewed by the Pathologist. INTERPRETATION: B. Antral ulcer, biopsy: Negative for Helicobacter pylori organisms. SJ:isabel 03/02/2023
--- NOTE | 2023-02-26 12:30 | EGD_PTH ---
PATIENT: BHUPENDRA DOSHI LOC: [facility] U#:[id number] AGE/SX: 68/F ROOM: RE02/26/[address]: Dr. Herberth Garibay DO : 1955 BED: DIS: 02/26/2023 SPEC #: [id number] RECD: 02/26/23 16:37 STATUS: DAISY HERNANDESMiley #: [id number] BOB: 02/26/23 12:[address]: Herberth Garibay DEPT: SURGICAL PATHOLOGY RECD BY: Mariela Randhawa ENTERED: 03/01/23 10:08 SP TYPE: EGD BIOPSY RYDER DR: Dr. Ashok Hernandez MD Tissues: A - Duodenum, NOS B - Gastric mucous membrane C - Ileum, NOS D - COLON BIOPSY Procedures: Surgery Specimen Level IV HEADER OPERATION: Colonoscopy, EGD ([facility] [place]), biopsies PRE-OP DIAGNOSIS: Abdominal pain, diarrhea TISSUE SUBMITTED: A - Duodenum biopsy, B - Antral ulcer biopsy, C - Biopsy terminal ileum, D - Random colonic biopsies MICROSCOPIC DIAGNOSIS A. Duodenum, biopsy: Fragments of small intestinal mucosa, no pathologic diagnosis. B. Antral ulcer, biopsy: Fragments of gastric mucosa with ulceration, fibrinous exudation and associated acute inflammation and moderate chronic inflammation. See comment. C. Terminal ileum, biopsy: Fragments of small intestinal mucosa with mild nonspecific acute and chronic inflammation. D. Colon, random biopsy: Focal acute colitis. 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 See comment. SJ:isabel 03/02/2023 COMMENT B. The results of immunohistochemistry for Helicobacter pylori will be reported separately ([id number]). D. Focal cryptitis is noted. Crypt abscesses, glandular distortion and granulomas are not seen. Correlation with clinical, endoscopic findings and appropriate follow up are necessary. MICROSCOPIC DESCRIPTION Slides are reviewed. GROSS DESCRIPTION A - Received in fixative is one container labeled with the patient's name and designated duodenal biopsy. The specimen consists of two irregular fragments of light ayala soft tissue that in aggregate measure 0.7 x 0.5 x 0.1 cm. The specimen is totally submitted in one cassette. B - Received in fixative is one container labeled with the patient's name and designated antral ulcer biopsy. The specimen consists of multiple irregular fragments of light ayala soft tissue that in aggregate measure 1.0 x 0.3 x 0.1 cm. The specimen is totally submitted in one cassette. C - Received in fixative is one container labeled with the patient's name and designated terminal ileum biopsy. The specimen consists of multiple irregular fragments of light ayala soft tissue that in aggregate measure 0.6 x 0.6 x 0.1 cm. The specimen is totally submitted in one cassette. D - Received in fixative is one container labeled with the patient's name and designated random colonic biopsy. The specimen consists of multiple irregular fragments of light ayala soft tissue that in aggregate measure 2.0 x 0.5 x 0.1 cm. The specimen is totally submitted in one cassette. / SJ:rg 03/01/2023 TC:2 CPT: 09774 x4
--- NOTE | 2023-02-26 12:55 | OP.EGD_ITS ---
Patient Name: Karen Polanco Procedure Date: 02/26/2023 12:00 PM Date of : 1955 Age: 68 Procedure: Upper GI endoscopy Indications: Epigastric abdominal pain, Dyspepsia Providers: Herberth Garibay DO Referring MD: Herberth Garibay DO Medicines: Monitored Anesthesia Care Patient Profile: This is a 68 year old female. Refer to note in patient chart for documentation of history and physical. Patient has symptoms of chronic dyspepsia. Complications: No immediate complications. Procedure: Pre-Anesthesia Assessment: - Prior to the procedure, a History and Physical was performed, and patient medications and allergies were reviewed. The risks and benefits of the procedure and the sedation options and risks were discussed with the patient. All questions were answered and informed consent was obtained. Patient identification and proposed procedure were verified by the physician in the pre-procedure area. Mental Status Examination: alert and oriented. Airway Examination: normal oropharyngeal airway and neck mobility. Respiratory Examination: clear to auscultation. CV Examination: normal. Prophylactic Antibiotics: The patient does not require prophylactic antibiotics. Prior Anticoagulants: The patient has taken no previous anticoagulant or antiplatelet agents. ASA Grade Assessment: II - A patient with mild systemic disease. After reviewing the risks and benefits, the patient was deemed in satisfactory condition to undergo the procedure. The anesthesia plan was to use moderate sedation / analgesia (conscious sedation). Immediately prior to administration of medications, the patient was re-assessed for adequacy to receive sedatives. The heart rate, respiratory rate, oxygen saturations, blood pressure, adequacy of pulmonary ventilation, and response to care were monitored throughout the procedure. The physical status of the patient was re-assessed after the procedure. After obtaining informed consent, the endoscope was passed under direct vision. Throughout the procedure, the patient's blood pressure, pulse, and oxygen saturations were monitored continuously. The Colonoscope was introduced through the mouth, and advanced to the second part of duodenum. The upper GI endoscopy was accomplished without difficulty. The patient tolerated the procedure well. Scope In: 12:21:42 PM Scope Out: 12:27:44 PM Total Procedure Duration Time 0 hours 6 minutes 2 seconds Findings: The examined esophagus was normal. Diffuse severe inflammation with hemorrhage characterized by erosions, erythema, friability and granularity was found in the entire examined stomach. Biopsies were taken with a cold forceps for histology. Verification of patient identification for the specimen was done. Estimated blood loss was minimal. Two oozing cratered gastric ulcers with a visible vessel were found in the gastric antrum. The largest lesion was 6 mm in largest dimension. Area was successfully injected with 5 mL of a 1:10,000 solution of epinephrine for drug delivery. Estimated blood loss was minimal. Coagulation for hemostasis using heater probe was successful. Biopsies were taken with a cold forceps for histology. Verification of patient identification for the specimen was done. Estimated blood loss was minimal. Diffuse moderately erythematous mucosa without active bleeding and with no stigmata of bleeding was found in the first portion of the duodenum. Impression: - Normal esophagus. - Chronic gastritis with hemorrhage. Biopsied. - Oozing gastric ulcers with a visible vessel. Injected. Treated with a heater probe. Biopsied. - Erythematous duodenopathy. Recommendation: - Discharge patient to home. - Resume previous diet. - Continue present medications. - Await pathology results. - Repeat upper endoscopy for surveillance. - Use Protonix (pantoprazole) 40 mg PO BID. - Use sucralfate tablets 1 gram PO BID. - Ursodiol 300 mg 3 times a day Procedure Code(s): --- Professional --- 45185, 59, Esophagogastroduodenoscopy, flexible, transoral; with control of bleeding, any method 61181, 59, Esophagogastroduodenoscopy, flexible, transoral; with directed submucosal injection(s), any substance 35256, 51, Esophagogastroduodenoscopy, flexible, transoral; with biopsy, single or multiple CPT copyright 2017 [employer]. All rights reserved. The codes documented in this report are preliminary and upon local flatbed driver review may be revised to meet current compliance requirements. Herberth Garibay DO 02/26/2023 12:54:53 PM This report has been signed electronically. Number of Addenda: 0 Note Initiated On: 02/26/2023 12:00 PM
--- NOTE | 2023-02-26 12:55 | OP.CCLET_ITS ---
02/26/2023 Ashok Hernandez Re : Upper GI endoscopy procedure for Karen Polanco Hazelr Mary This procedure was performed on Sunday, February 26, 2023. My impressions and recommendations are as follows: Impressions : - Normal esophagus. - Chronic gastritis with hemorrhage. Biopsied. - Oozing gastric ulcers with a visible vessel. Injected. Treated with a heater probe. Biopsied. - Erythematous duodenopathy. Recommendations : - Discharge patient to home. - Resume previous diet. - Continue present medications. - Await pathology results. - Repeat upper endoscopy for surveillance. - Use Protonix (pantoprazole) 40 mg PO BID. - Use sucralfate tablets 1 gram PO BID. - Ursodiol 300 mg 3 times a day My findings are described in the full procedure note, which is enclosed. If I can be of further assistance, please feel free to contact me at . Sincerely, Herberth Garibay, 02/26/2023 12:54:53 PM This report has been signed electronically.
--- NOTE | 2023-02-26 13:02 | OP.CCLET_ITS ---
02/26/2023 Ashok Hernandez Re : Colonoscopy procedure for Karen Olivar Mary This procedure was performed on Sunday, February 26, 2023. My impressions and recommendations are as follows: Impressions : - Preparation of the colon was fair. - Patent end-to-side colo-colonic anastomosis, characterized by healthy appearing mucosa. - Congested mucosa in the rectum, in the sigmoid colon, in the descending colon, at the splenic flexure, in the transverse colon, at the hepatic flexure and in the ascending colon. Biopsied. - Redundant colon. - Multiple ulcers in the terminal ileum. Biopsied. Treated with a heater probe. - Stool in the rectum, in the recto-sigmoid colon, in the sigmoid colon and in the cecum. Recommendations : - Discharge patient to home. - Resume previous diet. - Continue present medications. - Await pathology results. - Repeat colonoscopy in 1 year for surveillance. My findings are described in the full procedure note, which is enclosed. If I can be of further assistance, please feel free to contact me at . Sincerely, Herberth Garibay, 02/26/2023 1:01:16 PM This report has been signed electronically.
--- NOTE | 2023-02-26 13:02 | OP.COLON_ITS ---
Patient Name: Karen Polanco Procedure Date: 02/26/2023 12:27 PM Date of : 1955 Age: 68 Procedure: Colonoscopy Indications: Generalized abdominal pain, Clinically significant diarrhea of unexplained origin, Hematochezia Providers: Herberth Garibay DO Referring MD: Herberth Garibay DO Medicines: Monitored Anesthesia Care Patient Profile: This is a 68 year old female. Refer to note in patient chart for documentation of history and physical. Patient has symptoms of chronic dyspepsia. Last Colonoscopy: date unknown. Unable to locate last colonoscopy report. Complications: No immediate complications. Procedure: Pre-Anesthesia Assessment: - Prior to the procedure, a History and Physical was performed, and patient medications and allergies were reviewed. The risks and benefits of the procedure and the sedation options and risks were discussed with the patient. All questions were answered and informed consent was obtained. Patient identification and proposed procedure were verified by the physician in the pre-procedure area. Mental Status Examination: alert and oriented. Airway Examination: normal oropharyngeal airway and neck mobility. Respiratory Examination: clear to auscultation. CV Examination: normal. Prophylactic Antibiotics: The patient does not require prophylactic antibiotics. Prior Anticoagulants: The patient has taken no previous anticoagulant or antiplatelet agents. ASA Grade Assessment: II - A patient with mild systemic disease. After reviewing the risks and benefits, the patient was deemed in satisfactory condition to undergo the procedure. The anesthesia plan was to use moderate sedation / analgesia (conscious sedation). Immediately prior to administration of medications, the patient was re-assessed for adequacy to receive sedatives. The heart rate, respiratory rate, oxygen saturations, blood pressure, adequacy of pulmonary ventilation, and response to care were monitored throughout the procedure. The physical status of the patient was re-assessed after the procedure. After I obtained informed consent, the scope was passed under direct vision. Throughout the procedure, the patient's blood pressure, pulse, and oxygen saturations were monitored continuously. The Colonoscope was introduced through the anus and advanced to the terminal ileum. The colonoscopy was performed without difficulty. The patient tolerated the procedure well. The quality of the bowel preparation was fair. Scope In: 12:30:40 PM Scope Withdrawal Time 0 hours 7 minutes 36 seconds Scope Out: 12:44:06 PM Total Procedure Duration Time 0 hours 13 minutes 26 seconds Findings: The perianal and digital rectal examinations were normal. There was evidence of a prior end-to-side colo-colonic anastomosis in the recto-sigmoid colon. This was patent and was characterized by healthy appearing mucosa. The anastomosis was traversed. An area of moderately congested mucosa was found in the rectum, in the sigmoid colon, in the descending colon, at the splenic flexure, in the transverse colon, at the hepatic flexure and in the ascending colon. Biopsies were taken with a cold forceps for histology. Verification of patient identification for the specimen was done. Estimated blood loss was minimal. The hepatic flexure was moderately redundant. The terminal ileum contained multiple six mm ulcers. Oozing was present. Stigmata of recent bleeding were present. Biopsies were taken with a cold forceps for histology. Verification of patient identification for the specimen was done. Coagulation for hemostasis using heater probe was successful. Estimated blood loss was minimal. Stool was found in the rectum, in the recto-sigmoid colon, in the sigmoid colon and in the cecum. Impression: - Preparation of the colon was fair. - Patent end-to-side colo-colonic anastomosis, characterized by healthy appearing mucosa. - Congested mucosa in the rectum, in the sigmoid colon, in the descending colon, at the splenic flexure, in the transverse colon, at the hepatic flexure and in the ascending colon. Biopsied. - Redundant colon. - Multiple ulcers in the terminal ileum. Biopsied. Treated with a heater probe. - Stool in the rectum, in the recto-sigmoid colon, in the sigmoid colon and in the cecum. Recommendation: - Discharge patient to home. - Resume previous diet. - Continue present medications. - Await pathology results. - Repeat colonoscopy in 1 year for surveillance. Procedure Code(s): --- Professional --- 59943, 59, Colonoscopy, flexible; with control of bleeding, any method 18979, Colonoscopy, flexible; with biopsy, single or multiple CPT copyright 2017 [employer]. All rights reserved. The codes documented in this report are preliminary and upon injection mold tooling technician review may be revised to meet current compliance requirements. Herberth Garibay DO 02/26/2023 1:01:16 PM This report has been signed electronically. Number of Addenda: 0 Note Initiated On: 02/26/2023 12:27 PM
== END 2023-02-26 13:39 | disposition home or self-care (01) ==
LOC: EN 11:18 → AC 11:21
PROVIDERS: PCP Family Medicine; Referring Provider Family Medicine; Visit Provider Internal Medicine Gastroenterology
PROC: 0DJD8ZZ Inspection of Lower Intestinal Tract, Via Natural or Artificial Opening Endoscopic (ICD-10-PCS; CPT 45378; principal; 2023-02-26 12:25)
DX: K29.51 Unspecified chronic gastritis with bleeding (principal); K25.9 Gastric ulcer, unspecified as acute or chronic, without hemorrhage or perforation; Q43.8 Other specified congenital malformations of intestine; I10 Essential (primary) hypertension; Z90.49 Acquired absence of other specified parts of digestive tract; Z98.0 Intestinal bypass and anastomosis status; K63.3 Ulcer of intestine; Z79.82 Long term (current) use of aspirin
CPT/HCPCS: 43239; 45380; 43255; 45382; 88305; 88342; J7120; J2405

== ENCOUNTER 2023-06-24 06:27 | Day surgery (SDC) | payer MEDICARE, SELFPAY ==
[2023-06-24] VITALS (7 sets, daily range): BP systolic 101–152; BP diastolic 55–76; PULSE 58–72; RESP 16–18; TEMP 36.1–36.4; O2SAT 93–100; BMI 27.9
[2023-06-24] MEDS: Lactated Ringers 1,000 ML 15 ML IV (07:00)
--- NOTE | 2023-06-24 07:15 | PCM.HP.BLA ---
History and Physical Date of Admission: 06/24/23 BHUPENDRA DOSHI, is a 68 F who presents to the office today for follow up. PMH ventral hernia (incisional hernia); cholelithiasis s/p cholecystectomy ; HTN; prediabetic; diverticulitis requiring colonic resection (Centeno?s procedure), (diverting ileostomy), (ileostomy reversal)? ? [facility] ED 01.14.22 with abdominal pain, worsening over last 5 days. Biochemical workup and imaging concerning for gallbladder disease without emergent indication. Discharged with pain medication and instruction to f/u with [facility].?US RUQ?hepatic measurement 17.2cm with fatty infiltration; large 1.3cm stone in gallbladder fundus with +[place] sign? ? [facility] established 01.19.22 Dr. Butcher with biliary colic/symptomatic cholelithiasis following [facility] ED 01.14.22?Laparoscopic cholecystectomy 01.23.22?noting gallbladder inflammation; rectus diastases and large fascial defects containing omentum (will require mesh placement).? [facility] ED 01.26.22 with increased abdominal pain following surgery. No imaging indicated. GI cocktail administered and helpful. Discharged without acute finding with extended release pain medication. ?Xray abd?without acute/chronic symptoms.? [facility] OV 01.26.22 with improvement of symptoms following ED evaluation and medications.? CT abd/pel 02.10.22?stomach wall thickening, gastritis; small bowel anastomosis; stool throughout colon; atherosclerotic disease; mesenteric lymph nodes; ventral hernia.? ? [facility] ED 12.20.22 with RUQ abd pain radiating into her back for 1-2weeks. Pain reminiscent of ?gallbladder attack?. Biochemical workup and imaging performed without acute concern and discharged home with?Carafate, omeprazole and Zofran.? CT abd/pel?mild cardiomegaly; unremarkable liver; distal wall thickening of stomach, ?ulcer; ventral wall hernias one of which containing transverse colon without obstruction; enlarged mesenteric and retroperitoneal lymph nodes, worsened since previous exam.? ? *[facility] established 01.12.23. With use of Carafate and omeprazole she is no longer having any pain, bloating. Reports she has no GI symptoms at this time to report. No recollection of EGD. Colonoscopy approximately 7years prior which she reports finding anastomosis with an abnormal suture which bled with manipulation, no further intervention for this. ? ? [facility] hospitalization 02.01.23-02.03.23 for N/V since day prior; Zofran ineffective. Biochemical and imaging concerning for SBO and general surgery consulted with recommendation of NG placement and admission; surgery not indicated at consult. Symptoms resolved and she was discharged? CT abd/pel?SBO with mild/moderate fluid distention r/t incarceration of small bowel loop into paraumbilical hernia, high grade small bowel ileus; hermia sac measures 8.48cm with left anterior abd wall hernia measuring 5.8cm; s/p RS colonic resection; small amount ascites.? [facility] 02.02.23?gas and stool scattered in colon. No acute finding, no ileus or SBO.? GI outpatient:? EGD and colonoscopy 02.26.23?EGD chronic gastritis with hemorrhage; oozing gastric ulcers with visible vessel, heater probed; erythematous duodenopathy. H.Pylori negative.? Colonoscopy fair prep end-to-side colo-colonic anastomosis of RS colon; congested mucosa from rectum to ascending colon; hepatic flexure redundant; TI with ulceration and oozing with recent bleed, heater probe. Pathology notes focal cryptitis without abscesses or granulomas and melanosis coli.? Start sucralfate and ursodiol? Contact 03.03.23 with endoscopy findings. She was having constipation prior to recent hospitalization but this has improved with use of daily MiraLAX. No additional symptoms to address at this time.? Pt doing very well since last visit. Has not had any abdominal pain or constipation. Still uses Miralax once a day. Does report belching at nighttime if she overeats. No gas or bloating. ROS Const Constitutional: No fatigue ENT ENT: No difficulty swallowing Gastro GI: No abdominal pain, belching, bloating, change in bowel habits, change in stool character, coffee ground emesis, constipation, cramping, diarrhea, heartburn, difficulty swallowing, feeling full early, excessive flatus, incontinent of stools, Vomiting blood/hematemesis, Blood in stool, loose stools, Black,tarry stools, nausea/dyspepsia, pain with swallowing, vomiting or other Musc Musculoskeletal: Positive for back pain, stiffness and Arthritis; No joint pain Skin Skin: No yellowing of the eye or itchy eyes Psych Psychiatric: No anxiety and No depression Endo Endocrine: No fatigue Aller/Imm Allergy/Immunologic: No itchy eyes Drake/Lymp Hematologic/Lymphatic: No easy bleeding or easy bruising Exam Const General: cooperative and comfortable Nutritional Appearance: average body habitus and well nourished HENSC Head: normal to inspection Ears: hearing grossly normal bilaterally Nose: external nose normal Face and sinus: normal facial exam Mouth: oral mucosae normal Throat: posterior oropharynx normal Eyes General: appearance normal, both eyes and all related structures Neck Neck: normal visual inspection Chest Chest palpation & inspection: normal inspection of the chest and normal palpation of entire chest wall Resp Effort & Inspection: normal respiratory effort Auscultation: Bilateral: Clear to Auscultation Cardio Palpation: normal PMI Rate: regular rate Rhythm: regular rhythm GI Inspection: normal to inspection Auscultation: normal bowel sounds Percussion: normal to percussion Palpation: no hepatosplenomegaly Skin General: no rashes or lesions noted Neuro General: patient alert Extrem General: normal to inspection Psych Affect: normal affect Quality Reporting Tobacco Screening ([facility] 138) Smoking Status: Never smoker Assessment and Plan Assessment and Plan (1) Abdominal pain: Status: Acute Qualifiers: Abdominal location: generalized Qualified Code(s): R10.84 - Generalized abdominal pain Plan: The differential diagnosis for abdominal pain does include gastritis, peptic ulcer disease, IBS, bile gastritis, gastroparesis. Underwent a EGD and colonoscopy. Multiple gastric ulcers gastric duodenal bulb. Biopsies were negative for dysplasia or cancer. She has been on PPI therapy and sulcal fate therapy. She will need to continue that for (2) Diarrhea: Status: Acute Qualifiers: Diarrhea type: functional diarrhea Qualified Code(s): K59.1 - Functional diarrhea Plan: Diarrhea in the setting of cholecystectomy likely secondary to postcholecystectomy diet however been going several years is refractory to lactobacillus probiotic on a daily basis. The Carafate was helping her cannot stools to become thicker but I do not think she needs that at this time. Her diarrhea was subsequently has completely stopped . .. I have examined the patient and the H&P has been reviewed. There are no clinical changes since date of exam.
--- NOTE | 2023-06-24 07:30 | EGD_PTH ---
PATIENT: BHUPENDRA DOSHI LOC: EN U#:[id number] AGE/SX: 68/F ROOM: RE06/24/[address]: Dr. Herberth Garibay DO : 1955 BED: DIS: 06/24/2023 SPEC #: [id number] RECD: 06/24/23 10:37 STATUS: DAISY ELEANOR #: [id number] BOB: 06/24/23 07:[address]: Herberth Garibay DEPT: SURGICAL PATHOLOGY RECD BY: Mariela Randhawa ENTERED: 06/24/23 11:23 SP TYPE: EGD BIOPSY SERGEI DR: Dr. Ashok Hernandez MD Tissues: Esophagus, NOS Procedures: Special Stain Group II Surgery Specimen Level IV Alcian Blue/PAS (control) HEADER OPERATION: EGD and biopsy PRE-OP DIAGNOSIS: Abdominal pain, diarrhea TISSUE SUBMITTED: Distal esophagus biopsy MICROSCOPIC DIAGNOSIS Distal esophagus, biopsy: Fragments of gastric mucosa with moderate chronic inflammation. Intestinal metaplasia (goblet cell metaplasia) not identified. See comment. SACHIN:isabel 06/25/2023 COMMENT Alcian blue/PAS stain with matched control is used in the evaluation of the specimen. A minute fragment of benign squamous epithelium is also noted. MICROSCOPIC DESCRIPTION Slides are reviewed. GROSS DESCRIPTION Received in fixative is one container labeled with the patient's name and designated distal esophagus biopsy. The specimen consists of multiple irregular fragments of light ayala soft tissue that in aggregate measure 1.0 x 0.4 x 0.1 cm. The specimen is totally submitted in one cassette. / SACHIN:isabel 06/24/2023 TC:3 CPT: 99542, 76156
--- NOTE | 2023-06-24 07:56 | OP.CCLET_ITS ---
06/24/2023 Ashok Hernandez Re : Upper GI endoscopy procedure for Karen Polanco Dear Mary This procedure was performed on May. My impressions and recommendations are as follows: Impressions : - Esophageal mucosal changes suspicious for short-segment Rivas's esophagus. Biopsied. - Hiatal hernia. - A large amount of a phytobezoar in the stomach. Removal was successful. - Normal second portion of the duodenum. Recommendations : - Discharge patient to home. - Full liquid diet today. - Continue present medications. - Await pathology results. - Repeat upper endoscopy in 3 months for surveillance. - Pantoprazole to 20 mg p.o. twice daily - 20 ounces of Coca-Cola 3 times a day - Pancreatic enzymes 3 times a day and with snacks - Gastric emptying study My findings are described in the full procedure note, which is enclosed. If I can be of further assistance, please feel free to contact me at . Sincerely, Herberth Garibay, 06/24/2023 7:56:02 AM This report has been signed electronically.
--- NOTE | 2023-06-24 07:56 | OP.EGD_ITS ---
Patient Name: Karen Polanco Procedure Date: 06/24/2023 7:35 AM Date of : 1955 Age: 68 Procedure: Upper GI endoscopy Indications: Epigastric abdominal pain, Heartburn Providers: Herberth Garibay DO Referring MD: Ashok Hernandez Medicines: Monitored Anesthesia Care Patient Profile: This is a 68 year old female. Refer to note in patient chart for documentation of history and physical. Patient has symptoms of chronic abdominal cramping and chronic epigastric abdominal pain. Complications: No immediate complications. Procedure: Pre-Anesthesia Assessment: - Prior to the procedure, a History and Physical was performed, and patient medications and allergies were reviewed. The risks and benefits of the procedure and the sedation options and risks were discussed with the patient. All questions were answered and informed consent was obtained. Patient identification and proposed procedure were verified by the physician in the pre-procedure area. Mental Status Examination: alert and oriented. Airway Examination: normal oropharyngeal airway and neck mobility. Respiratory Examination: clear to auscultation. CV Examination: normal. Prophylactic Antibiotics: The patient does not require prophylactic antibiotics. Prior Anticoagulants: The patient has taken no anticoagulant or antiplatelet agents. ASA Grade Assessment: II - A patient with mild systemic disease. After reviewing the risks and benefits, the patient was deemed in satisfactory condition to undergo the procedure. The anesthesia plan was to use monitored anesthesia care (MAC). Immediately prior to administration of medications, the patient was re-assessed for adequacy to receive sedatives. The heart rate, respiratory rate, oxygen saturations, blood pressure, adequacy of pulmonary ventilation, and response to care were monitored throughout the procedure. The physical status of the patient was re-assessed after the procedure. After obtaining informed consent, the endoscope was passed under direct vision. Throughout the procedure, the patient's blood pressure, pulse, and oxygen saturations were monitored continuously. The gastroscope was introduced through the mouth, and advanced to the second part of duodenum. The upper GI endoscopy was accomplished without difficulty. The patient tolerated the procedure well. Scope In: 7:44:11 AM Scope Out: 7:46:39 AM Total Procedure Duration Time 0 hours 2 minutes 28 seconds Findings: There were esophageal mucosal changes suspicious for short-segment Rivas's esophagus present in the lower third of the esophagus. The maximum longitudinal extent of these mucosal changes was 3 cm in length. Mucosa was biopsied with a cold forceps for histology in a targeted manner at intervals of 1 cm in the lower third of the esophagus. One specimen bottle was sent to pathology. Verification of patient identification for the specimen was done. Estimated blood loss was minimal. A hiatal hernia was present. A large amount of a phytobezoar was found in the gastric body. Removal was accomplished with a basket. Verification of patient identification for the specimen was done. Estimated blood loss was minimal. The second portion of the duodenum was normal. Impression: - Esophageal mucosal changes suspicious for short-segment Rivas's esophagus. Biopsied. - Hiatal hernia. - A large amount of a phytobezoar in the stomach. Removal was successful. - Normal second portion of the duodenum. Recommendation: - Discharge patient to home. - Full liquid diet today. - Continue present medications. - Await pathology results. - Repeat upper endoscopy in 3 months for surveillance. - Pantoprazole to 20 mg p.o. twice daily - 20 ounces of Coca-Cola 3 times a day - Pancreatic enzymes 3 times a day and with snacks - Gastric emptying study Procedure Code(s): --- Professional --- 67246, Esophagogastroduodenoscopy, flexible, transoral; with removal of foreign body(s) 99171, Esophagogastroduodenoscopy, flexible, transoral; with biopsy, single or multiple CPT copyright 2021 [employer]. All rights reserved. The codes documented in this report are preliminary and upon patient partner review may be revised to meet current compliance requirements. Herberth Garibay DO 06/24/2023 7:56:02 AM This report has been signed electronically. Number of Addenda: 0 Note Initiated On: 06/24/2023 7:35 AM
[2023-06-24 09:55] LABS: Erythrocyte Sedimentation Rate 1 mm/hr (0-30)
[2023-06-24 10:23] LABS: CRP < 2.90 mg/L (0.0-3.0)
[2023-06-25 12:09] LABS: Anti-Centromere B Ab <0.2 AI (0.0-0.9); Anti-Chromatin <0.2 AI (0.0-0.9); Anti-Jo <0.2 AI (0.0-0.9); Anti-Scleroderma-70 AB <0.2 AI (0.0-0.9); Anti-dsDNA Ab 1 IU/mL (0-9); RNP Ab <0.2 AI (0.0-0.9); SJOGREN'S Anti-SS-A test < 0.2 AI (0.0-0.9); SJOGREN'S Anti-SS-B test < 0.2 AI (0.0-0.9); Smith Ab <0.2 AI (0.0-0.9)
[2023-06-25 14:09] LABS: Cytoplasmic Ab (C-ANCA) <1:20 titer (Neg:<1:20); Perinuclear Ab (P-ANCA) <1:20 titer (Neg:<1:20)
== END 2023-06-24 09:07 | disposition home or self-care (01) ==
LOC: EN 06:28 → AC 06:31
PROVIDERS: PCP Family Medicine; Referring Provider Family Medicine; Visit Provider Internal Medicine Gastroenterology
PROC: 0DJ08ZZ Inspection of Upper Intestinal Tract, Via Natural or Artificial Opening Endoscopic (ICD-10-PCS; CPT 43235; principal; 2023-06-24 07:25)
DX: K44.9 Diaphragmatic hernia without obstruction or gangrene (principal); K59.1 Functional diarrhea; R12 Heartburn; R10.84 Generalized abdominal pain; T18.2XXA Foreign body in stomach, initial encounter; X58.XXXA Exposure to other specified factors, initial encounter; I10 Essential (primary) hypertension; Z90.49 Acquired absence of other specified parts of digestive tract; Z79.899 Other long term (current) drug therapy
CPT/HCPCS: 43239; 43247; 36415; 85652; 86140; 86225; 86235; 86256; 88305; 88313; J7120; J2405

== ENCOUNTER → 2023-07-07 | Outpatient (CLI) | payer MEDICARE, SELFPAY ==
--- NOTE | 2023-07-07 10:08 | NM_ITS ---
CLINICAL: 68-year-old female with history of clinical gastroparesis. SEMI-SOLID PHASE 99m Tc SULFUR COLLOID GASTRIC EMPTYING STUDY COMPARISON: None available FINDINGS: The patient was administered 1.0 mCi of 99m Tc sulfur colloid mixed with oatmeal and consumed per os. Image acquisitions in the anterior-posterior projection were obtained for 60 minutes. There is prompt visualization of the stomach. There is no gastroesophageal reflux identified. The T ? raw data emptying was calculated to be 16.35 minutes, (Normal: 12-56 minutes). NM/Gastric Emptying Study IMPRESSION: 1. NORMAL 99m Tc sulfur colloid semi-solid phase (oatmeal) gastric emptying imaging examination. A. There is normal and preserved semi-solid phase gastric emptying compared to normal controls. (Anthony et al, J Nucl Med Tech 38: 186, 2010). Electronically Signed: Jayson Burroughs DO at 21:05 EDT ,
== END | disposition home or self-care (01) ==
LOC: NM 10:03
PROVIDERS: PCP Family Medicine; Referring Provider Internal Medicine Gastroenterology; Visit Provider Internal Medicine Gastroenterology
DX: K31.84 Gastroparesis (principal)
CPT/HCPCS: 78264; A9541